=== PATIENT | male | born 1950 | race Two or more races ===

== ENCOUNTER 2022-04-04 11:08 | Inpatient (IN) | payer OTHER ==
[~2022-04-04] VITALS: Ht 165.1 cm; Wt 53.9 kg
[2022-04-04 14:12] LABS: Basophils # (auto) 0 10 ^3/uL (0-0.2); Basophils % (auto) 0.2 % (0.0-2.0); Eosinophils # (auto) 0 10 ^3/uL (0-0.8); Lymphocytes # (auto) 0.4 10 ^3/uL (0.4-5.4); Mean Corpuscular Volume 105.6 fL (80.0-100.0); Monocytes # (auto) 0.9 10 ^3/uL (0-1.3); Neutrophils % (auto) 92.8 % (37.0-80.0)
[2022-04-04 14:15] LABS: Hematocrit 31.9 % (41.0-53.0); Hemoglobin 10.9 g/dL (13.5-17.5); Lymphocytes % (auto) 2.2 % (10.0-50.0); Mean Corpuscular Hemoglobin 36.1 pg (28.0-32.0); Mean Corpuscular Hgb Conc. 34.2 g/dL (32.0-36.0); Monocytes % (auto) 4.8 % (0.0-12.0); Neutrophils # (auto) 17.8 10 ^3/uL (1.6-8.6); Red Blood Cells 3.02 10^6/uL (4.5-5.90); Red Cell Distribution Width 14.4 % (11.8-14.3); White Blood Cell 19.2 10^3/uL (4.4-10.8)
[2022-04-04 14:27] LABS: Albumin 3.5 g/dL (3.4-5.0); Calcium 8.3 mg/dL (8.5-10.1); Potassium 4.7 mmol/L (3.5-5.1)
[2022-04-04 14:31] LABS: BUN/Creatinine Ratio 7.4; Bilirubin, Total 0.9 mg/dL (0.2-1.0); Total Protein 7.6 g/dL (6.4-8.2)
[2022-04-04 14:33] LABS: INR 0.99 (0.9-1.15); Partial Thromboplastin Time 31.4 sec (23.6-33.0)
[2022-04-04] MEDS ORDERED: DOCUSATE SOD 100 MG CAP PO PRN (22:15)
[2022-04-04] MEDS ORDERED: HYDROcodone-ACET 5/325MG TAB PO PRN (22:15)
[2022-04-04] MEDS ORDERED: ACETAMINOPHEN 325 MG TAB PO PRN (22:15)
[2022-04-04] MEDS ORDERED: ONDANSETRON HCL 4 MG/2 ML VIAL IV PRN (22:15)
[2022-04-04] MEDS ORDERED: metroNIDAZOLE 500MG/100ML 100 ML IV ONE (23:00)
[2022-04-04] MEDS ORDERED: NITROGLYCERIN 0.4 MG SL TAB SL PRN (23:30)
[2022-04-04] MEDS ORDERED: MORPHINE SULFATE INJ 2 MG/ml SYRG IV PRN (23:30)
[2022-04-05 02:12] VITALS: BP 120/46
[2022-04-05 02:26] LABS: Urine Bacteria FEW /hpf (None Seen); Urine Blood 1+ /uL (Negative); Urine Specific Gravity 1.014 (1.001-1.035); Urine WBC 573 /hpf (0 - 3); Urine WBC Clumps PRESENT /hpf (None Seen)
[2022-04-05 05:00] VITALS: BP 117/45
[2022-04-05] MEDS: SODIUM CHLOR 0.9% PF (SALINE LOCK) 10ML VIAL/SYR IV SCH ×3 (05:57→21:38)
[2022-04-05 06:12] LABS: Basophils # (auto) 0.1 10 ^3/uL (0-0.2); Basophils % (auto) 0.3 % (0.0-2.0); Eosinophils # (auto) 0 10 ^3/uL (0-0.8); Hemoglobin 9.9 g/dL (13.5-17.5); Lymphocytes # (auto) 0.8 10 ^3/uL (0.4-5.4); Mean Corpuscular Hemoglobin 35.7 pg (28.0-32.0); Red Blood Cells 2.76 10^6/uL (4.5-5.90)
[2022-04-05 06:14] LABS: Eosinophils % (auto) 0.1 % (0.0-7.0); Hematocrit 29.2 % (41.0-53.0); Lymphocytes % (auto) 5.3 % (10.0-50.0); Mean Corpuscular Hgb Conc. 33.8 g/dL (32.0-36.0); Mean Corpuscular Volume 105.8 fL (80.0-100.0); Monocytes # (auto) 0.9 10 ^3/uL (0-1.3); Monocytes % (auto) 6.3 % (0.0-12.0); White Blood Cell 14.8 10^3/uL (4.4-10.8)
[2022-04-05] MEDS: metroNIDAZOLE 500MG/100ML 100 ML IV SCH ×3 (06:15→21:31)
[2022-04-05 06:33] LABS: Potassium 5.1 mmol/L (3.5-5.1)
[2022-04-05 06:44] LABS: BUN/Creatinine Ratio 8.4; Bilirubin, Total 0.7 mg/dL (0.2-1.0); Calcium 8.1 mg/dL (8.5-10.1); Total Protein 6.5 g/dL (6.4-8.2)
[2022-04-05 08:30] VITALS: BP 115/82
[2022-04-05] MEDS: B-COMPLEX W/ C & FOLIC ACID(NEPHROVITE TAB) PO SCH (09:46)
[2022-04-05] MEDS: SEVELAMER 800 MG TAB PO SCH ×3 (09:46→18:49)
[2022-04-05] MEDS ORDERED: HEPARIN SODIUM (PORCINE) 5000 UNITS/ML 1ML VIAL SC SCH (10:00)
[2022-04-05] MEDS ORDERED: FAMOTIDINE (10MG/ML) 2ML VL IV SCH (10:00)
[2022-04-05] MEDS ORDERED: cefTRIAXone 1GM/50ML D5W 50 ML IV ONE (11:00)
[2022-04-05] MEDS ORDERED: PANTOPRAZOLE 40 MG/10 ML VIAL INJ IV ONE (11:00)
[2022-04-05 12:25] VITALS: BP 112/39
[2022-04-05 16:20] VITALS: BP 132/53
[2022-04-05] MEDS: PANTOPRAZOLE 40 MG/10 ML VIAL INJ IV SCH (21:31)
[2022-04-06 05:00] VITALS: BP 122/48
[2022-04-06] MEDS: SODIUM CHLOR 0.9% PF (SALINE LOCK) 10ML VIAL/SYR IV SCH (05:16)
[2022-04-06] MEDS: metroNIDAZOLE 500MG/100ML 100 ML IV SCH (05:16)
[2022-04-06 06:06] LABS: Basophils # (auto) 0 10 ^3/uL (0-0.2); Basophils % (auto) 0.3 % (0.0-2.0); Eosinophils # (auto) 0 10 ^3/uL (0-0.8); Eosinophils % (auto) 0.2 % (0.0-7.0); Mean Corpuscular Volume 105.9 fL (80.0-100.0); Monocytes # (auto) 0.7 10 ^3/uL (0-1.3)
[2022-04-06 06:09] LABS: Hematocrit 27.6 % (41.0-53.0); Hemoglobin 9.6 g/dL (13.5-17.5); Lymphocytes # (auto) 0.7 10 ^3/uL (0.4-5.4); Lymphocytes % (auto) 8.9 % (10.0-50.0); Mean Corpuscular Hgb Conc. 34.9 g/dL (32.0-36.0); Neutrophils # (auto) 6.8 10 ^3/uL (1.6-8.6); Neutrophils % (auto) 82.6 % (37.0-80.0); Red Cell Distribution Width 13.9 % (11.8-14.3); White Blood Cell 8.2 10^3/uL (4.4-10.8)
[2022-04-06 06:22] LABS: BUN/Creatinine Ratio 10.1; Calcium 7.7 mg/dL (8.5-10.1); Potassium 4.5 mmol/L (3.5-5.1)
[2022-04-06] MEDS ORDERED: SODIUM CHL 0.9% 1000 ML BAG XX ONE (07:00)
[2022-04-06] MEDS ORDERED: cefTRIAXone 1GM/50ML D5W 50 ML IV SCH (09:00)
[2022-04-06 09:06] VITALS: BP 114/38
[2022-04-06] MEDS: SEVELAMER 800 MG TAB PO SCH ×2 (09:23→12:00)
[2022-04-06] MEDS: PANTOPRAZOLE 40 MG/10 ML VIAL INJ IV SCH (09:24)
[2022-04-06] MEDS: B-COMPLEX W/ C & FOLIC ACID(NEPHROVITE TAB) PO SCH (09:24)
[2022-04-06 12:24] VITALS: BP 134/56
[2022-04-06] MEDS ORDERED: CEPH-509 PO (12:33)
[2022-04-06] MEDS ORDERED: EPOETIN ALFA-EPBX 4,000 UNIT/ML VIAL SC ONE (21:00)
== END 2022-04-06 16:13 | disposition home or self-care (01) | DRG 682 ==
LOC: ER 11:08 → EDBD 11:08 → OVERFLOW 23:25 → WEST WING 04-05 01:09
PROVIDERS: ADMIT Nurse Practitioner Family; ATTEND Internal Medicine Geriatric Medicine
PROC: 5A1D70Z Performance of Urinary Filtration, Intermittent, Less than 6 Hours Per Day (ICD-10-PCS; principal; 2022-04-06)
DX: I12.0 Hypertensive chronic kidney disease with stage 5 chronic kidney disease or end stage renal disease (principal); N18.6 End stage renal disease; N39.0 Urinary tract infection, site not specified; E87.1 Hypo-osmolality and hyponatremia; K57.30 Diverticulosis of large intestine without perforation or abscess without bleeding; D63.8 Anemia in other chronic diseases classified elsewhere; D72.829 Elevated white blood cell count, unspecified; H54.7 Unspecified visual loss; M89.8X9 Other specified disorders of bone, unspecified site; Z20.822 Contact with and (suspected) exposure to COVID-19; Z79.01 Long term (current) use of anticoagulants; Z99.2 Dependence on renal dialysis
CPT/HCPCS: 36415; 71045; 74176; 76700; 80048; 80053; 81001; 83605; 84484; 85025; 85384; 85610; 85730; 86850; 86900; 86901; 87040; 87081; 90935; 93005; C9113; G0378; J0696; J1642; J3490

== ENCOUNTER 2023-02-06 10:57 | Emergency (ER) | payer OTHER ==
[~2023-02-06] VITALS: Ht 165.1 cm; Wt 54.5 kg
[~2023-02-06 10:57] MED LIST: CEPH-509 PO
[2023-02-06 13:52] LABS: Basophils # (auto) 0 10 ^3/uL (0-0.2); Eosinophils # (auto) 0 10 ^3/uL (0-0.8); Lymphocytes # (auto) 0.8 10 ^3/uL (0.4-5.4); Mean Corpuscular Hgb Conc. 34.2 g/dL (32.0-36.0); Monocytes # (auto) 0.7 10 ^3/uL (0-1.3); Monocytes % (auto) 9.2 % (0.0-12.0); Neutrophils % (auto) 79.8 % (37.0-80.0); Nucleated Red Blood Cells % 0.1 %; Red Blood Cells 3.68 10^6/uL (4.5-5.90); White Blood Cell 7.2 10^3/uL (4.4-10.8)
[2023-02-06 13:54] LABS: Basophils % (auto) 0.3 % (0.0-2.0); Eosinophils % (auto) 0.2 % (0.0-7.0); Hematocrit 38.4 % (41.0-53.0); Hemoglobin 13.1 g/dL (13.5-17.5); Lymphocytes % (auto) 10.5 % (10.0-50.0); Mean Corpuscular Hemoglobin 35.7 pg (28.0-32.0); Mean Corpuscular Volume 104.4 fL (80.0-100.0); Neutrophils # (auto) 5.7 10 ^3/uL (1.6-8.6); Red Cell Distribution Width 12.9 % (11.8-14.3)
[2023-02-06 14:05] LABS: Albumin 4.1 g/dL (3.4-5.0); Calcium 9.2 mg/dL (8.5-10.1); Magnesium 2.6 mg/dL (1.6-2.6); Potassium 4.9 mmol/L (3.5-5.1)
[2023-02-06 14:08] LABS: BUN/Creatinine Ratio 5.6 (10.0-20.0); Bilirubin, Total 0.7 mg/dL (0.2-1.0); Total Protein 7.3 g/dL (6.4-8.2)
[2023-02-06 17:31] VITALS: BP 123/76
== END 2023-02-06 17:33 | disposition home or self-care (01) ==
LOC: ER 10:57 → EDUNIT# 10:57 → EDBD 10:57 → ER 17:32
DX: I48.0 Paroxysmal atrial fibrillation (principal); I12.0 Hypertensive chronic kidney disease with stage 5 chronic kidney disease or end stage renal disease; N18.6 End stage renal disease; Z99.2 Dependence on renal dialysis
CPT/HCPCS: 36415; 71045; 80053; 83735; 83880; 84484; 85025; 93005

== ENCOUNTER 2024-10-13 16:06 | Inpatient (IN) | payer OTHER ==
[~2024-10-13] VITALS: Ht 165.1 cm; Wt 93.5 kg
--- NOTE | 2024-10-13 19:03 | ED.PDOC ---
History of Present Illness HPI Comments 73-year-old renal failure male on dialysis chief complaint general weakness dizziness. States symptoms started a proximally 1 week ago. States went walking he feels really weak dizzy he states he almost fell the other day due to cause of the weakness and dizziness. He does report some chest pain a day ago but since has resolved. has been following regularly with his dialysis and has not missed any sessions. Denies difficulty breathing, shortness of breath, headaches, numbness slurred speech, chest pain at this time, nausea, vomiting or diarrhea. Chief Complaint: General Weakness Time Seen by MD: 18:17 Primary Care Provider: Reviewed Notes: Nurses Notes, Medications, Allergies Allergies: Coded Allergies: NO KNOWN ALLERGIES (Unverified , 04/04/22) Home Meds Active Scripts Cephalexin (KEFLEX 500) 500 Mg Cap, 1 CAP PO Q8HR for 7 Days, #21 CAP Prov:ECHO URBINA MD 04/06/22 Information Source: Patient Mode of Arrival: EMS Past Medical History PAST MEDICAL HISTORY: AFIB, ESRD, HTN Surgical History: Denies all surgeries Family History Family History: Reviewed,noncontributory to illness Social History Smoker: Non-Smoker Alcohol: Denies ETOH Use Drugs: Denies Drug Use Lives In: Home Constitutional: reports: weakness; denies: chills, diaphoresis, fatigue, fever, malaise, sweats, others EENTM: denies: blurred vision, double vision, ear bleeding, ear discharge, ear drainage, ear pain, ear ringing, eye pain, eye redness, hearing loss, mouth pain, mouth swelling, nasal discharge, nose bleeding, nose congestion, nose pain, photophobia, tearing, throat pain, throat swelling, voice changes, others Respiratory: denies: cough, hemoptysis, orthopnea, SOB at rest, shortness of breath, SOB with excertion, stridor, wheezing, others Cardiovascular: reports: dizzy spells, lightheadedness; denies: chest pain, diaphoresis, Dyspnea on exertion, edema, irregular heart beat, left arm pain, palpitations, PND, syncope, others Gastrointestinal: denies: abdomen distended, abdominal pain, blood streaked bowels, constipated, diarrhea, dysphagia, difficulty swallowing, hematemesis, melena, nausea, poor appetite, poor fluid intake, rectal bleeding, rectal pain, vomiting, others Genitourinary: denies: burning, dysuria, flank pain, frequency, hematuria, incontinence, penile discharge, penile sore, pain, testicle pain, testicle swelling, urgency, others Neurological: denies: dizziness, fainting, headache, left sided numbness, left sided weakness, numbness, paresthesia, pre-existing deficit, right sided numbness, right sided weakness, seizure, speech problems, tingling, tremors, weakness, others Musculoskeletal: denies: back pain, gout, joint pain, joint swelling, muscle pain, muscle stiffness, neck pain, others Integumetry: denies: bruises, change in color, change in hair/nails, dryness, laceration, lesions, lumps, rash, wounds, others Allergic/Immunocompromised: denies: Difficulty Healing, Frequent Infections, Hives, Itching, others Hematologic/Lymphatic: denies: anemia, blood clots, easy bleeding, easy bruising, swollen glands, others Endocrine: denies: excessive hunger, excessive sweating, excessive thirst, excessive urination, flushing, intolerance to cold, intolerance to heat, unexplained weight gain, unexplained weight loss, others Psychiatric: denies: anxiety, bipolar disorder, depression, hopeless, panic disorder, schizophrenia, sleepless, suicidal, others Physical Exam General Appearance: No Apparent Distress, Normal HEENT: Normal ENT Inspection, Pharynx Normal, TMs Normal Neck: Full Range of Motion, Non-Tender, Normal, Normal Inspection Respiratory: Chest Non-Tender, Lungs Clear, No Accessory Muscle Use, No Respiratory Distress, Normal Breath Sounds Cardiovascular: No Edema, No JVD, No Murmur, No Gallop, Normal Peripheral Pulses, Regular Rate/Rhythm Breast Exam: Deferred Gastrointestinal: No Organomegaly, Non Tender, No Pulsatile Mass, Normal Bowel Sounds, Soft Genitalia: Deferred Pelvic: Deferred Rectal: Deferred Extremities: No calf tenderness, Normal capillary refill, Normal inspection, Normal range of motion, Non-tender, No pedal edema Musculoskeletal : Apperance: Normal 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 Was a procedure done?: No Differential Dx Considerations may include: Electrolyte balance. Bradycardia. VA X-Ray, Labs, Meds, VS Vital Signs Date Time Temp Pulse Resp B/P (MAP) Pulse Ox O2 Delivery O2 Flow Rate FiO2 10/13/24 19:57 98.7 54 17 144/60 (88) 99 98.7 10/13/24 19:57 54 17 99 Room Air 10/13/24 19:29 50 10/13/24 16:18 98.9 63 22 159/69 (99) 95 Lab Test 10/13/24 22:05 10/13/24 20:05 10/13/24 18:54 Range/Units Triglycerides Level 116 < 150 mg/dL Cholesterol Level 180 < 200 mg/dL LDL Cholesterol 113 H < 100 mg/dL HDL Cholesterol 50 40-59 mg/dL Troponin I High Sensitivity 7 8 </=54 ng/L White Blood Count 5.7 4.4-10.8 10^3/uL Red Blood Count 3.75 L 4.5-5.90 10^6/uL Hemoglobin 13.1 L 13.5-17.5 g/dL Hematocrit 38.1 L 41.0-53.0 % Mean Corpuscular Volume 101.6 H 80.0-100.0 fL Mean Corpuscular Hemoglobin 34.9 H 28.0-32.0 pg Mean Corpuscular Hemoglobin Concent 34.3 32.0-36.0 g/dL Red Cell Distribution Width 13.7 11.8-14.3 % Platelet Count 213 140-450 10^3/uL Mean Platelet Volume 8.6 6.9-10.8 fL Neutrophils (%) (Auto) 77.7 37.0-80.0 % Lymphocytes (%) (Auto) 10.2 10.0-50.0 % Monocytes (%) (Auto) 11.6 0.0-12.0 % Eosinophils (%) (Auto) 0.2 0.0-7.0 % Basophils (%) (Auto) 0.3 0.0-2.0 % Neutrophils # (Auto) 4.4 1.6-8.6 10 ^3/uL Lymphocytes # (Auto) 0.6 0.4-5.4 10 ^3/uL Monocytes # (Auto) 0.7 0-1.3 10 ^3/uL Eosinophils # (Auto) 0 0-0.8 10 ^3/uL Basophils # (Auto) 0 0-0.2 10 ^3/uL Nucleated Red Blood Cells 0.1 % Sodium Level 142 136-145 mmol/L Potassium Level 5.5 H 3.5-5.1 mmol/L Chloride Level 106 98-107 mmol/L Carbon Dioxide Level 29 20-31 mmol/L Anion Gap 7 5-15 Blood Urea Nitrogen 37 H 9-23 mg/dL Creatinine 6.66 H 0.700-1.30 mg/dL Glomerular Filtration Rate Calc 8 >90 mL/min BUN/Creatinine Ratio 5.6 L 10.0-20.0 Serum Glucose 128 H 74-106 mg/dL Hemoglobin A1c 4.8 <5.7 % A1C Calcium Level 9.6 8.7-10.4 mg/dL Magnesium Level 2.3 1.6-2.6 mg/dL Total Bilirubin 0.6 0.2-1.0 mg/dL Aspartate Amino Transferase (AST) 17 13-40 U/L Alanine Aminotransferase (ALT) 22 7-40 U/L Alkaline Phosphatase 89 46-116 U/L Total Protein 6.8 5.7-8.2 g/dL Albumin 4.0 3.2-4.8 g/dL Thyroid Stimulating Hormone (TSH) 16.62 H 0.55-4.78 uIU/mL X-Ray, Labs, Meds, VS Comment Chest x-ray without any cardiopulmonary acute findings. CMP shows GFR of 8 a potassium of 5.5. Twelve lead shows bradycardia 50 beats per minute. CBC within normal limits. Troponin 8 in 7. Patient continues with general weakness intermittent dizziness we will admit inpatient for further evaluation and workup. Patient placed for hospitalist Time of 1ST Reevaluation: 21:44 Reevaluation 1ST: Unchanged Patient Education/Counseling: Diagnosis, Treatment, Prognosis, Need For Follow Up Family Education/Counseling: Diagnosis, Treatment, Prognosis, Need For Follow Up Departure 1 Departure Time of Disposition: 21:43 Impression: Primary Impression: Dizziness Additional Impressions: Weakness CKD (chronic kidney disease) requiring chronic dialysis Disposition: 09 ADMITTED INPATIENT Condition: Stable Discharged With: Other (With daughter) Critical Care Note Critical Care Time?: No Stability Stability form required: DEMETRI Barone Oct 13, 2024 19:03
[2024-10-13 19:24] LABS: Basophils # (auto) 0 10 ^3/uL (0-0.2); Eosinophils # (auto) 0 10 ^3/uL (0-0.8); Eosinophils % (auto) 0.2 % (0.0-7.0); Hemoglobin 13.1 g/dL (13.5-17.5); Neutrophils # (auto) 4.4 10 ^3/uL (1.6-8.6); Nucleated Red Blood Cells % 0.1 %; Red Cell Distribution Width 13.7 % (11.8-14.3)
[2024-10-13 19:27] LABS: Basophils % (auto) 0.3 % (0.0-2.0); Hematocrit 38.1 % (41.0-53.0); Lymphocytes # (auto) 0.6 10 ^3/uL (0.4-5.4); Lymphocytes % (auto) 10.2 % (10.0-50.0); Mean Corpuscular Hemoglobin 34.9 pg (28.0-32.0); Mean Corpuscular Hgb Conc. 34.3 g/dL (32.0-36.0); Mean Corpuscular Volume 101.6 fL (80.0-100.0); Monocytes # (auto) 0.7 10 ^3/uL (0-1.3); Monocytes % (auto) 11.6 % (0.0-12.0); Neutrophils % (auto) 77.7 % (37.0-80.0); Platelet Count (auto) 213 10^3/uL (140-450); Red Blood Cells 3.75 10^6/uL (4.5-5.90); White Blood Cell 5.7 10^3/uL (4.4-10.8)
[2024-10-13 19:36] LABS: Alanine Aminotransferase 22 U/L (7-40); Alkaline Phosphatase 89 U/L (46-116); Anion Gap 7 (5-15); Aspartate Aminotransferase 17 U/L (13-40); BUN/Creatinine Ratio 5.6 (10.0-20.0); Bilirubin, Total 0.6 mg/dL (0.2-1.0); Calcium 9.6 mg/dL (8.7-10.4); Carbon Dioxide 29 mmol/L (20-31); Chloride 106 mmol/L (98-107); Magnesium 2.3 mg/dL (1.6-2.6); Sodium 142 mmol/L (136-145); Total Protein 6.8 g/dL (5.7-8.2)
[2024-10-13 19:38] LABS: Blood Urea Nitrogen 37 mg/dL (9-23); Glucose 128 mg/dL (74-106); Potassium 5.5 mmol/L (3.5-5.1)
--- NOTE | 2024-10-13 20:28 | DVH ---
CHEST RADIOGRAPH Indication: weakness, sob Technique: Frontal and lateral view of the chest was obtained Comparison: None FINDINGS: Lines and Tubes: None Lungs: Clear Pleura: No effusion. No pneumothorax. Cardiomediastinal contours: Unremarkable Bones: Unremarkable IMPRESSION: No evidence of acute disease.
[2024-10-13] MEDS ORDERED: ACETAMINOPHEN 325 MG TAB PO PRN (22:30)
--- NOTE | 2024-10-13 22:52 | DVHHPRES ---
History of Present Illness Resident Creating Document: SUDHAKAR HINTON RESIDENT History of Present Illness This 73-year-old male with past medical history of hypertension, partial bilateral blindness, end-stage renal disease on hemodialysis (Wednesday, and Wednesday), last hemodialysis was yesterday. The patient presented to the ED to generalized weakness fatigue. The patient states that symptoms started three days ago characterized by generalized weakness, fatigue recurrent falls without loss of consciousness. The patient denies fever, chills, chest pain, palpita tions, abdominal pain or any other associated symptoms. Initial EKG showed sinus rhythm with sinus bradycardia with a rate of 50, no ST segment elevation or depression. Initial labs were grossly unremarkable except for hyperkalemia at 5.5, creatinine 6.66 and BUN 37. Initial chest x-ray was grossly unremarkable without evidence of focal consolidation for vascular congestion. We will admit the patient for further assessment and management. Cardiovascular: HTN Renal/: Chronic renal insuff, Chronic renal failure, Other (End-stage renal disease on hemodialysis (Wednesday, and Wednesday)) Past Surgical History: None Family History: None Smoke: No ALCOHOL: none Drugs: None Lives: with Family Domestic Violence: Neg Review of Systems Constitutional: Yes: Weakness, Other (Generalized weakness, fatigue.); No: Fever, Chills, Sweats, Malaise Eyes: Other (Has bilateral partial blindness); No: Pain, Vision change, Conjunctivae inflammation, Eyelid inflammation, Redness ENT: No: Ear pain, Ear discharge, Nose pain, Nose discharge, Nose congestion, Mouth pain, Mouth swelling, Throat pain, Throat swelling, Other Respiratory: No: Cough, Dry, Shortness of breath, SOB with excertion, Wheezing, Hemoptysis, Pleuritic Pain, Sputum, Wheezing, Other Cardiovascular: No: Chest Pain, Palpitations, Orthopnea, Paroxysmal Noc. Dyspnea, Edema, Lt Headedness, Other Gastrointestinal: No: Nausea, Vomiting, Abdominal Pain, Diarrhea, Constipation, Melena, Hematochezia, Other Genitourinary: No Dysuria, No Frequency, No Incontinence, No Hematuria, No Retention, No Other Musculoskeletal: No: other, neck pain, shoulder pain, arm pain, back pain, hand pain, leg pain, foot pain Skin: No: Rash, Lesions, Jaundice, Bruising, Other Neurological: Weakness; No: Numbness, Incoordination, Change in speech, Confusion, Seizures, Other Allergies: Coded Allergies: NO KNOWN ALLERGIES (Unverified , 04/04/22) Medications Current Medications Medications Dose Ordered Sig/Abe Route Start Time Stop Time Status Last Admin Dose Admin Acetaminophen 650 mg Q6HP PRN PO 10/13/24 22:30 UNV Enoxaparin Sodium 40 mg DAILY SC 10/14/24 10:00 UNV Exam Vital Signs Vital Signs Date Time Temp Pulse Resp B/P (MAP) Pulse Ox O2 Delivery O2 Flow Rate FiO2 10/13/24 19:57 98.7 54 17 144/60 (88) 99 98.7 10/13/24 19:57 Room Air General Appearance: Alert, Oriented X3, Cooperative, No acute distress HEENT: Atraumatic, PERRLA, EOMI, Mucous membr. moist/pink Respiratory: Clear to auscultation, Normal air movement Cardiovascular: Regular rate, Normal S1, Normal S2, No murmurs Abdominal: Normal bowel sounds, Soft, No tenderness, No hepatospenomegaly Extremities: No clubbing, No cyanosis, No edema, Normal pulses, No tenderness/swelling Skin: No rashes, No breakdown, No significant lesion Neuro: Normal gait, Normal speech, Strength at 5/5 X4 ext, Normal tone, Sensation intact, Cranial nerves 3-12 NL, Reflexes 2+ Psych/Mental Status: Mental status NL, Mood NL Labs/Xrays Labs Test 10/13/24 20:05 10/13/24 18:54 Range/Units Troponin I High Sensitivity 7 </=54 ng/L White Blood Count 5.7 4.4-10.8 10^3/uL Red Blood Count 3.75 L 4.5-5.90 10^6/uL Hemoglobin 13.1 L 13.5-17.5 g/dL Hematocrit 38.1 L 41.0-53.0 % Mean Corpuscular Volume 101.6 H 80.0-100.0 fL Mean Corpuscular Hemoglobin 34.9 H 28.0-32.0 pg Mean Corpuscular Hemoglobin Concent 34.3 32.0-36.0 g/dL Red Cell Distribution Width 13.7 11.8-14.3 % Platelet Count 213 140-450 10^3/uL Mean Platelet Volume 8.6 6.9-10.8 fL Neutrophils (%) (Auto) 77.7 37.0-80.0 % Lymphocytes (%) (Auto) 10.2 10.0-50.0 % Monocytes (%) (Auto) 11.6 0.0-12.0 % Eosinophils (%) (Auto) 0.2 0.0-7.0 % Basophils (%) (Auto) 0.3 0.0-2.0 % Neutrophils # (Auto) 4.4 1.6-8.6 10 ^3/uL Lymphocytes # (Auto) 0.6 0.4-5.4 10 ^3/uL Monocytes # (Auto) 0.7 0-1.3 10 ^3/uL Eosinophils # (Auto) 0 0-0.8 10 ^3/uL Basophils # (Auto) 0 0-0.2 10 ^3/uL Nucleated Red Blood Cells 0.1 % Sodium Level 142 136-145 mmol/L Potassium Level 5.5 H 3.5-5.1 mmol/L Chloride Level 106 98-107 mmol/L Carbon Dioxide Level 29 20-31 mmol/L Anion Gap 7 5-15 Blood Urea Nitrogen 37 H 9-23 mg/dL Creatinine 6.66 H 0.700-1.30 mg/dL Glomerular Filtration Rate Calc 8 >90 mL/min BUN/Creatinine Ratio 5.6 L 10.0-20.0 Serum Glucose 128 H 74-106 mg/dL Calcium Level 9.6 8.7-10.4 mg/dL Magnesium Level 2.3 1.6-2.6 mg/dL Total Bilirubin 0.6 0.2-1.0 mg/dL Aspartate Amino Transferase (AST) 17 13-40 U/L Alanine Aminotransferase (ALT) 22 7-40 U/L Alkaline Phosphatase 89 46-116 U/L Total Protein 6.8 5.7-8.2 g/dL Albumin 4.0 3.2-4.8 g/dL Assessment/Plan Assessment/Plan Assessment/plan Generalized weakness and fatigue rule out cardiac etiology Symptomatic bradycardia? -initial EKG showed sinus rhythm with bradycardia at a rate of [address] segment elevation or depression -troponins were negative -Initial chest xray was grossly unremarkable no evidence of focal consolidations or pulmonary vascular congestion -denies chest pain, palpitation -Ordered echocardiogram -consult cardiology to R/O symptomatic bradycardia or any cardiac etiology -Ordered TSH to r/o hypothyroidism or any metabolic etiology -Patient denies usage of any medications at home including beta blockers/calcium channel blockers. ESRD on HD (wednesday,,wednesday) -last creatinine was 6.66, BUN 37 -consulted nephrology for hemodialysis Hyperkalemia due to end-stage renal disease -potassium is 5.5 -hyperkalemia protocol given. Goals of care discussed with the patient at bedside, full code Plan discussed with Dr. Majano Plan discussed with: Patient My Orders Orders - SUDHAKAR HINTON Procedure Category Date Status Time Admit ADMIT 10/13/24 Transmitted 22:25 Code Status CODE 10/13/24 Transmitted 22:25 Vital Signs XIOMARA 10/13/24 In Process 22:25 Review Orders With XIOMARA 10/13/24 In Process Adm. 22:25 Regular Diet DIET 10/14/24 Transmitted Breakfast Acetaminophen Tablet PHA 10/13/24 Logged (Tylenol Tablet) 22:30 Notify Of Changes XIOMARA 10/13/24 In Process From Base 22:25 Advance Directive XIOMARA 10/13/24 In Process 22:25 Urinalysis LAB 10/13/24 Logged 22:25 Lipid Panel LAB 10/13/24 Logged 22:25 Patient Condition ORDERS 10/13/24 Transmitted 22:25 Allergies XIOMARA 10/13/24 In Process 22:25 Drug Screen LAB 10/13/24 Logged 22:25 Ambulate Every 4hours XIOMARA 10/13/24 In Process 22:25 Hemoglobin A1c LAB 10/13/24 Logged 22:25 Enoxaparin Sodium PHA 10/14/24 Logged (Lovenox) 10:00 Echo 2d Mode Cardiac US 10/13/24 Transmitted DOP 22:31 * Cardiology Consult CONS 10/13/24 Transmitted 22:31 *Dr. [facility] CONS 10/13/24 Transmitted -[place] 22:31 Date of Service: Oct 13, 2024 Billing Provider: DEYA MAJANO MD Common Visit Codes: 08715-[id number] INP/OBS CARE (HIGH) Secondary Visit Codes: 06050-[id number] CARE PLAN 30 MINUTES SUDHAKAR HINTON Oct 13, 2024 22:52 DEYA MAJANO MD Oct 16, 2024 20:01
[2024-10-13 22:58] LABS: Triglycerides 116 mg/dL (< 150)
[2024-10-13 23:00] LABS: Cholesterol 180 mg/dL (< 200); HDL Cholesterol 50 mg/dL (40-59)
[2024-10-13 23:01] LABS: LDL Cholesterol 113 mg/dL (< 100)
[2024-10-13] MEDS: ALBUTEROL SULF 2.5 MG/0.5ML(0.5%) NEB SOLN NEB ONE (23:29)
[2024-10-14] VITALS (10 sets, daily range): BP systolic 0–140; BP diastolic 34–86; PULSE 17–106; RESP 16–18; TEMP 97.7–98.5; O2SAT 95–100
[2024-10-14] MEDS: FUROSEMIDE 20 MG/2 ML VIAL IV ONE (00:45)
[2024-10-14] MEDS: DEXTROSE (50%) 50ML SYRG IV ONE (00:46)
[2024-10-14] MEDS: InsuLIN REG 1unit/0.01ml Soln (100units/ml) IV ONE (00:56)
[2024-10-14] MEDS ORDERED: ENOXAPARIN SOD 40 MG/0.4 ML SYRINGE SC SCH (10:00)
[2024-10-14] MEDS ORDERED: SODIUM CHL 0.9% 1000 ML BAG XX ONE (12:15)
--- NOTE | 2024-10-14 12:35 | DVHINCON2 ---
Date Seen: Oct 14, 2024 Referring Physician MD [place] resident Reason for Consultation Symptomatic bradycardia History of Present Illness This is a 73 year old male patient who presents to the emergency room with chief complaint of generalized weakness, dizziness, and recurrent falls for four days prior to emergency room arrival. Cardiology has now been consulted for symptomatic bradycardia. Initial twelve lead electrocardiogram reveals sinus bradycardia with PAC without pauses or AV block. At the time of assessment, the patient was back in a normal sinus rhythm. Continuous weight trainer shows no events of bradycardia. The patient denies taking any AV juan blocking medications at home. The patient denies any cardiac symptoms such as chest pain, palpitations, or shortness of breath. Significant past medical history includes hypertension, ESRD on HD, partial blindness. The patient denies any previous cardiac history. Past Medical History Past medical history reviewed. No other significant than mentioned above. Past Surgical History Denies all previous surgeries Family History Family history reviewed. Social History Denies the use of tobacco, alcohol or illicit drugs. Allergies: Coded Allergies: NO KNOWN ALLERGIES (Unverified , 04/04/22) Home Meds Active Scripts Cephalexin (KEFLEX 500) 500 Mg Cap, 1 CAP PO Q8HR for 7 Days, #21 CAP Prov:ECHO URBINA MD 04/06/22 Current Medications Current Medications Medications (Trade) Dose Ordered Sig/Abe Route PRN Reason Start Time Stop Time Status Last Admin Acetaminophen (Tylenol Tablet) 650 mg Q6HP PRN PO PAIN SCALE 1-3 OR TEMP>100.4 10/13/24 22:30 Enoxaparin Sodium (Lovenox) 40 mg DAILY SC 10/14/24 10:00 UNV Review of Systems Constitutional: Generalized weakness Ears, Nose, & Throat: No symptom reported Eyes: No symptom reported Neurological: Dizziness Pulmonary/Respiratory: No symptoms reported Cardiovascular: No symptom reported Gastrointestinal: No symptom reported Genitourinary: No symptom reported Musculoskeletal: No symptom reported Skin: No symptom reported Psychiatric: No symptom reported Endocrine: No symptom reported Hematologic/Lymphatic: No symptom reported Vital Signs Vital Signs Date Time Temp Pulse Resp B/P (MAP) Pulse Ox O2 Delivery O2 Flow Rate FiO2 10/14/24 09:00 98.1 69 18 113/44 (67) 98 98.1 10/14/24 08:00 Room Air* 0 21 Physical Exam General Appearance: Cooperative. Pulmonary/Respiratory: Clear, bilateral breaths sounds. Cardiovascular/Chest: Regular rate and rhythm. Peripheral Pulses: 2+ Radial (R). 2+ Radial (L). 2+ Pedal (R). 2+ Pedal (L) Abdominal Exam: Normal bowel sounds. Ankle Exam: Negative ankle edema Lower extremities: Negative lower extremity edema Neuro/Mental Status: A/OX4, coherent. Thoughts/Psych: Normal thought pattern. Appropriate mood and affect. Good judgment and insight. Appearance: No acute distress. Skin Exam: Normal inspection. Normal color. Warm and dry. Labs/Diagnostic Data Labs Test 10/14/24 07:48 10/13/24 22:05 10/13/24 20:05 10/13/24 18:54 Range/Units Free Thyroxine (T4) Calculated 1.12 0.89-1.76 ng/dL Triglycerides Level 116 < 150 mg/dL Cholesterol Level 180 < 200 mg/dL LDL Cholesterol 113 H < 100 mg/dL HDL Cholesterol 50 40-59 mg/dL Troponin I High Sensitivity 7 </=54 ng/L White Blood Count 5.7 4.4-10.8 10^3/uL Red Blood Count 3.75 L 4.5-5.90 10^6/uL Hemoglobin 13.1 L 13.5-17.5 g/dL Hematocrit 38.1 L 41.0-53.0 % Mean Corpuscular Volume 101.6 H 80.0-100.0 fL Mean Corpuscular Hemoglobin 34.9 H 28.0-32.0 pg Mean Corpuscular Hemoglobin Concent 34.3 32.0-36.0 g/dL Red Cell Distribution Width 13.7 11.8-14.3 % Platelet Count 213 140-450 10^3/uL Mean Platelet Volume 8.6 6.9-10.8 fL Neutrophils (%) (Auto) 77.7 37.0-80.0 % Lymphocytes (%) (Auto) 10.2 10.0-50.0 % Monocytes (%) (Auto) 11.6 0.0-12.0 % Eosinophils (%) (Auto) 0.2 0.0-7.0 % Basophils (%) (Auto) 0.3 0.0-2.0 % Neutrophils # (Auto) 4.4 1.6-8.6 10 ^3/uL Lymphocytes # (Auto) 0.6 0.4-5.4 10 ^3/uL Monocytes # (Auto) 0.7 0-1.3 10 ^3/uL Eosinophils # (Auto) 0 0-0.8 10 ^3/uL Basophils # (Auto) 0 0-0.2 10 ^3/uL Nucleated Red Blood Cells 0.1 % Sodium Level 142 136-145 mmol/L Potassium Level 5.5 H 3.5-5.1 mmol/L Chloride Level 106 98-107 mmol/L Carbon Dioxide Level 29 20-31 mmol/L Anion Gap 7 5-15 Blood Urea Nitrogen 37 H 9-23 mg/dL Creatinine 6.66 H 0.700-1.30 mg/dL Glomerular Filtration Rate Calc 8 >90 mL/min BUN/Creatinine Ratio 5.6 L 10.0-20.0 Serum Glucose 128 H 74-106 mg/dL Hemoglobin A1c 4.8 <5.7 % A1C Calcium Level 9.6 8.7-10.4 mg/dL Magnesium Level 2.3 1.6-2.6 mg/dL Total Bilirubin 0.6 0.2-1.0 mg/dL Aspartate Amino Transferase (AST) 17 13-40 U/L Alanine Aminotransferase (ALT) 22 7-40 U/L Alkaline Phosphatase 89 46-116 U/L Total Protein 6.8 5.7-8.2 g/dL Albumin 4.0 3.2-4.8 g/dL Thyroid Stimulating Hormone (TSH) 16.62 H 0.55-4.78 uIU/mL Assessment Sinus bradycardia Rule out structural heart disease Hyperlipidemia ESRD on hemodialysis Hyperkalemia Legally blind Plan/Recommendation We will continue with the following plan/recommendations (Dr. Putnam): Patient seen and examined at bedside with . We will obtain a transthoracic echocardiogram to evaluate cardiac function. We will recommend to avoid any AV juan blocking agents. Monitor orthostatic vitals. Cardiac surveillance: Monitor for any ECG changes including pauses or AV blocks and notify cardiology team immediately. Thank you for allowing us to care for this patient. Please call with any questions or concerns. Critical care time spent: 41 minutes This medical document was created using an electronic medical record system with voice recognition software and computerized dictation system. Although this document has been carefully reviewed, there might still be some phonetic and typographical errors. Occasional wrong-word or ``sound-alike substitutions may have occurred due to the inherent limitations of voice recognition software. These areas are purely typographical due to imperfections of the software programs and do not reflect any compromise in the patient's medical care. Please read the chart carefully and recognize, using context, where these substitutions have occurred. Plan discussed with: Patient Date of Service: Oct 14, 2024 Billing Provider: KHOA PARDO Cardiology Common Codes: 12739-[id number] INP/OBS CARE (High) Cardiology Consultation Codes: 20491-[id number] CONSULT <45MIN KHOA PARDO Oct 14, 2024 12:35
--- NOTE | 2024-10-14 17:08 | DVHINCON2 ---
Date of service: Oct 14, 2024 Referring Physician Ap Ferrari Reason for Consultation Dialysis History of Present Illness 73 Y/O M with history of ESRD on HD via left arm AVF, HTN presented with chief complaint of generalized weakness and recurrent falls without loss of consciousness. EKG showed sinus bradycardia. last dialysis at [facility] on 10/12/23, net UF 1.2 L. Labs show K: 5.5 g/dl, Hb: 13.1 g/dl. CXR no acute abnormality. Nephrology consulted for dialysis. Past Medical History ESRD, HTN, hyperphosphatemia Past Surgical History AVF creation Allergies: Coded Allergies: NO KNOWN ALLERGIES (Unverified , 04/04/22) Home Meds Active Scripts Cephalexin (KEFLEX 500) 500 Mg Cap, 1 CAP PO Q8HR for 7 Days, #21 CAP Prov:ECHO URBINA MD 04/06/22 Current Medications Current Medications Medications (Trade) Dose Ordered Sig/Abe Route PRN Reason Start Time Stop Time Status Last Admin Acetaminophen (Tylenol Tablet) 650 mg Q6HP PRN PO PAIN SCALE 1-3 OR TEMP>100.4 10/13/24 22:30 Enoxaparin Sodium (Lovenox) 40 mg DAILY SC 10/14/24 10:00 Cancel Heparin Sodium (Porcine) 5,000 units Q12HR SC 10/15/24 10:00 Review of Systems As per HPI, all other systems were reviewed and are negative. H&P Exam Vital Signs/I&O Vital Sign Date Time Temp Pulse Resp B/P (MAP) Pulse Ox O2 Delivery O2 Flow Rate FiO2 10/14/24 16:57 97.8 84 18 116/65 (82) 95 97.8 10/14/24 08:00 Room Air* 0 21 Intake and Output 10/13/24 10/14/24 19:00 07:00 Intake Total 0 ml Balance 0 ml Intake Oral 0 ml Physical Exam Gen: NAD HEENT: NC,AT Lungs: CTA b/l Cardiac: RRR, no murmur Abd: soft, no tenderness Ext: no edema + left arm AVF Labs/Diagnostic Data Labs/Diagnostic Data Laboratory Tests Test 10/14/24 07:48 10/13/24 22:05 10/13/24 20:05 10/13/24 18:54 Range/Units Free Thyroxine (T4) Calculated 1.12 0.89-1.76 ng/dL Triglycerides Level 116 < 150 mg/dL Cholesterol Level 180 < 200 mg/dL LDL Cholesterol 113 H < 100 mg/dL HDL Cholesterol 50 40-59 mg/dL Troponin I High Sensitivity 7 8 </=54 ng/L White Blood Count 5.7 4.4-10.8 10^3/uL Red Blood Count 3.75 L 4.5-5.90 10^6/uL Hemoglobin 13.1 L 13.5-17.5 g/dL Hematocrit 38.1 L 41.0-53.0 % Mean Corpuscular Volume 101.6 H 80.0-100.0 fL Mean Corpuscular Hemoglobin 34.9 H 28.0-32.0 pg Mean Corpuscular Hemoglobin Concent 34.3 32.0-36.0 g/dL Red Cell Distribution Width 13.7 11.8-14.3 % Platelet Count 213 140-450 10^3/uL Mean Platelet Volume 8.6 6.9-10.8 fL Neutrophils (%) (Auto) 77.7 37.0-80.0 % Lymphocytes (%) (Auto) 10.2 10.0-50.0 % Monocytes (%) (Auto) 11.6 0.0-12.0 % Eosinophils (%) (Auto) 0.2 0.0-7.0 % Basophils (%) (Auto) 0.3 0.0-2.0 % Neutrophils # (Auto) 4.4 1.6-8.6 10 ^3/uL Lymphocytes # (Auto) 0.6 0.4-5.4 10 ^3/uL Monocytes # (Auto) 0.7 0-1.3 10 ^3/uL Eosinophils # (Auto) 0 0-0.8 10 ^3/uL Basophils # (Auto) 0 0-0.2 10 ^3/uL Nucleated Red Blood Cells 0.1 % Sodium Level 142 136-145 mmol/L Potassium Level 5.5 H 3.5-5.1 mmol/L Chloride Level 106 98-107 mmol/L Carbon Dioxide Level 29 20-31 mmol/L Anion Gap 7 5-15 Blood Urea Nitrogen 37 H 9-23 mg/dL Creatinine 6.66 H 0.700-1.30 mg/dL Glomerular Filtration Rate Calc 8 >90 mL/min BUN/Creatinine Ratio 5.6 L 10.0-20.0 Serum Glucose 128 H 74-106 mg/dL Hemoglobin A1c 4.8 <5.7 % A1C Calcium Level 9.6 8.7-10.4 mg/dL Magnesium Level 2.3 1.6-2.6 mg/dL Total Bilirubin 0.6 0.2-1.0 mg/dL Aspartate Amino Transferase (AST) 17 13-40 U/L Alanine Aminotransferase (ALT) 22 7-40 U/L Alkaline Phosphatase 89 46-116 U/L Total Protein 6.8 5.7-8.2 g/dL Albumin 4.0 3.2-4.8 g/dL Thyroid Stimulating Hormone (TSH) 16.62 H 0.55-4.78 uIU/mL Assessment Assessment: ESRD on HD Hyperkalemia Sinus bradycardia Recurrent falls Metabolic acidosis Hyperphosphatemia Anemia of CKD Secondary hyperparathyroidism Plan: s/p HD today. tolerated well Next HD on Wednesday TTS schedule for dialysis no need for CORTEZ at this time obtain 2D Echo Cardiology consult Plan discussed with: Patient, Daughter BRYCE TOMLIN MD Oct 14, 2024 17:08
--- NOTE | 2024-10-14 19:46 | DVHSR ---
APPROVED REPORT EXAM: Two-dimensional and M-mode echocardiogram with Doppler and color Doppler. Blood Pressure: 105/34 mmHg INDICATION R/O structural heart abn RISK FACTORS Height: 5'5", Weight: 112 DIMENSIONS LVDd4.8 (3.8-5.7cm)LA (2D)4.0 (1.9-4.0cm)Aortic Root3.2 (2.0-3.7cm) LVDs3.0 (2.5-4.0cm)LA (MM) (1.9-4.0cm)Aortic Cusp Exc1.9 (1.5-2.0cm) EF (%) 70.0 (55-70%)Rt. Atrium4.2 (1.9-4.0cm)Asc. Aorta cm IVSd1.1 (0.7-1.1cm)RV (D)3.5 (1.8-2.4cm) PWd1.1 (0.7-1.1cm) Mitral Valve MitralMitral Stenosis E wave0.89m/sMV Mean GR.mmHg A wave0.85m/sMV Peak GR.mmHg E/A ratio1.02D MVAcm2 DECEL [id number] 1/2 Timems Aortic Valve Aortic ValveAortic Stenosis V11.13m/Juan Daniel Mean GR.6mmHg V21.77m/Juan Daniel Peak GR.13mmHg LVOT Diameter2.0 (1.8-2.4cm)Doppler AVA2.00cm2 Pulmonic Valve V21.32m/s Tricuspid Valve TR Velocity2.68m/s [id number] LEFT VENTRICLE The left ventricle is normal size. There is normal left ventricular wall thickness. The left ventricle is normal in structure and function, LVEF is 65%. Diastolic function is normal. Normal wall motion. RIGHT VENTRICLE The right ventricle is normal size. The right ventricular systolic function is normal. ATRIA The left atrium is mildly dilated. The right atrium size is normal. MITRAL VALVE The mitral valve is normal. There is no mitral valve regurgitation noted. PULMONIC VALVE The pulmonic valve is grossly normal in structure and function. There is no pulmonic valvular regurgitation. TRICUSPID VALVE The tricuspid valve is grossly normal. There is trace to mild tricuspid regurgitation. AORTIC VALVE The aortic valve is trileaflet. No aortic regurgitation is present. GREAT VESSELS The aortic root is normal size. PERICARDIAL EFFUSION The pericardium appears normal. Other Information Technically limited study due to body habitus. Conclusion The left ventricle is normal size. There is normal left ventricular wall thickness. The left ventricl e is normal in structure and function, LVEF is 65%. Diastolic function is normal. Normal wall motion. The right ventricular systolic function is normal. The left atrium is mildly dilated. No significant valvular abnormalities. The pericardium appears normal.
--- NOTE | 2024-10-14 20:54 | DVHPNRES ---
Progress Note Date Seen: Oct 14, 2024 Resident Creating Document: LIZ VELAZQUEZ RESIDENT Medical Necessity Reason Pt with a Central, PICC or Fol: No Subjective Review of Systems pt seen and examined at bedside, mentions of no complaints Objective vital signs Vital Sign Date Time Temp Pulse Resp B/P (MAP) Pulse Ox O2 Delivery O2 Flow Rate FiO2 10/14/24 17:56 92 134/73 (93) 106 139/83 (101) 106 131/86 (101) 10/14/24 16:57 97.8 18 95 97.8 10/14/24 08:00 Room Air* 0 21 Total Intake and Output 10/13/24 10/13/24 10/14/24 15:00 23:00 07:00 Intake Total 0 ml Balance 0 ml medications Current Medications Medications Dose Ordered Sig/Abe Route Start Time Stop Time Status Last Admin Dose Admin Acetaminophen 650 mg Q6HP PRN PO 10/13/24 22:30 Enoxaparin Sodium 40 mg DAILY SC 10/14/24 10:00 Cancel Heparin Sodium (Porcine) 5,000 units Q12HR SC 10/15/24 10:00 Examination Examination General Appearance: Alert, Oriented X3, Cooperative, No acute distress HEENT: EOMI Respiratory: Clear to auscultation, Normal air movement Cardiovascular: Regular rate, Normal S1, Normal S2 Abdominal: Normal bowel sounds Extremities: No cyanosis, No edema, Normal pulses, No tenderness/swelling Skin: No rashes, No breakdown Neuro: Normal speech and tone laboratory and microbiology Laboratory Tests 10/13/24 18:54 Test 10/13/24 18:54 Range/Units Serum Glucose 128 H 74-106 mg/dL Labs and/or images reviewed: Labs reviewed by me, Image(s) reviewed by me Problem List/Assessment/Plan Problem List/Assessment/Plan Assessment/plan Generalized weakness and fatigue rule out cardiac etiology Symptomatic bradycardia? -initial EKG showed sinus rhythm with bradycardia at a rate of [address] segment elevation or depression -troponin were negative -Initial chest x-ray was grossly unremarkable no evidence of focal consolidations or pulmonary vascular congestion -denies chest pain, palpitation -Ordered echocardiogram -consult cardiology to R/O symptomatic bradycardia or any cardiac etiology -Ordered TSH to r/o hypothyroidism or any metabolic etiology -Patient denies usage of any medications at home including beta blockers/calcium channel blockers. ESRD on HD (Wednesday,,Wednesday) -consulted nephrology for hemodialysis Hyperkalemia due to ESRD -hyperkalemia protocol given. DVT prophylaxis Heparin 5000 q.12h Possible hypothyroidism Free T3 ordered in the a.m. Levothyroxine 25 mcg q.a.m. Goals of care discussed with the patient at bedside for 20 minutes, full code Case discussed with Dr. Andre VOGEL planning in the next 24-48 hours Plan discussed with: Patient, Other My Orders My Orders Orders - LIZ VELAZQUEZ RESIDENT Procedure Category Date Status Time Up In Chair Qid [id number] 10/14/24 In Process 17:03 Free T3 LAB 10/15/24 Verified 04:00 Complete Blood Count LAB 10/15/24 Verified 04:00 Basic Metabolic Panel LAB 10/15/24 Verified 04:00 Magnesium LAB 10/15/24 Verified 04:00 Addendum Addendum Addendum I was physically present for the tsang portions of the service provided to patient by THE RESIDENT. I have reviewed the documentation, discussed the case with resident and agree with the resident's documentation except as noted. Also the patient's clinical case was discussed with the patient's nurse. This medical document was created using an electronic medical record system with computerized dictation system. Although this document has been carefully reviewed, there might still be some phonetic and typographical errors. These areas are purely typographical due to imperfections of the software programs, and do not reflect any compromise in the patient's medical care. Late signature. Date of Service: Oct 14, 2024 Billing Provider: SOLOMON TELLEZ MD Common Visit Codes: 32105-[id number] INP/OBS CARE(HIGH) Secondary Visit Codes: 21454-[id number] CARE PLAN 30 MINUTES (20 minutes) LIZ VELAZQUEZ RESIDENT Oct 14, 2024 20:54 SOLOMON TELLEZ MD Oct 15, 2024 19:06
[2024-10-15 01:00] VITALS: BP_SYST 0; BP_SYST 124; BP_DIAS 42; PULSE 18; PULSE 60; RESP 18; TEMP 97.5; O2SAT 99
[2024-10-15 05:00] VITALS: BP_SYST 0; BP_SYST 142; BP_DIAS 74; PULSE 17; PULSE 54; RESP 17; TEMP 98.2; O2SAT 100
--- NOTE | 2024-10-15 06:42 | DVHPN2 ---
Progress Note - Dictate Date Seen: Oct 15, 2024 Medical Necessity Reason Pt with a Central, PICC or Fol: No Subjective no new symptoms vital signs Vital Sign Date Time Temp Pulse Resp B/P (MAP) Pulse Ox O2 Delivery O2 Flow Rate FiO2 10/15/24 05:00 98.2 54 17 142/74 (96) 100 98.2 17 0/ 10/14/24 20:00 Room Air* 0 21 Total Intake and Output 10/14/24 10/14/24 10/15/24 15:00 23:00 07:00 Intake Total 120 ml 240 ml 300 ml Output Total 150 ml 100 ml Balance -30 ml 140 ml 300 ml medications Current Medications Medications Dose Ordered Sig/Abe Route Start Time Stop Time Status Last Admin Dose Admin Acetaminophen 650 mg Q6HP PRN PO 10/13/24 22:30 Enoxaparin Sodium 40 mg DAILY SC 10/14/24 10:00 Cancel Heparin Sodium (Porcine) 5,000 units Q12HR SC 10/15/24 10:00 Levothyroxine Sodium 25 mcg QAM@0600 PO 10/15/24 06:00 objective Gen: NAD HEENT: NC,AT. decreased vision Lungs: CTA b/l Cardiac: RRR, no murmur Abd: soft, no tenderness Ext: no edema laboratory and microbiology Laboratory Tests 10/13/24 18:54 Test 10/13/24 18:54 Range/Units Serum Glucose 128 H 74-106 mg/dL Assessment/Plan Assessment: ESRD on HD Hyperkalemia Sinus bradycardia Recurrent falls Metabolic acidosis Hyperphosphatemia Anemia of CKD Secondary hyperparathyroidism Plan: s/p HD Wednesday. Next HD on Wednesday TTS schedule for dialysis no need for CORTEZ at this time obtain 2D Echo Cardiology consult Plan discussed with: Patient BRYCE TOMLIN MD Oct 15, 2024 06:42
[2024-10-15] MEDS: LEVOTHYROXINE SODIUM 25 MCG TAB PO SCH (06:43)
[2024-10-15 07:46] LABS: Chloride 102 mmol/L (98-107); Potassium 4.4 mmol/L (3.5-5.1); Sodium 142 mmol/L (136-145)
[2024-10-15 07:47] LABS: Anion Gap 7 (5-15); Calcium 8.8 mg/dL (8.7-10.4)
[2024-10-15 07:48] LABS: Basophils # (auto) 0 10 ^3/uL (0-0.2); Basophils % (auto) 0.4 % (0.0-2.0); Carbon Dioxide 33 mmol/L (20-31); Eosinophils # (auto) 0 10 ^3/uL (0-0.8); Eosinophils % (auto) 0.6 % (0.0-7.0); Hematocrit 35.1 % (41.0-53.0); Lymphocytes # (auto) 1.1 10 ^3/uL (0.4-5.4); Lymphocytes % (auto) 22.1 % (10.0-50.0); Mean Corpuscular Hemoglobin 34.6 pg (28.0-32.0); Mean Corpuscular Hgb Conc. 34.2 g/dL (32.0-36.0); Mean Corpuscular Volume 101.3 fL (80.0-100.0); Monocytes # (auto) 0.7 10 ^3/uL (0-1.3); Monocytes % (auto) 14.1 % (0.0-12.0); Neutrophils % (auto) 62.8 % (37.0-80.0); Nucleated Red Blood Cells % 0.1 %; Platelet Count (auto) 186 10^3/uL (140-450); Red Blood Cells 3.46 10^6/uL (4.5-5.90); Red Cell Distribution Width 14.4 % (11.8-14.3); White Blood Cell 4.8 10^3/uL (4.4-10.8)
[2024-10-15 07:52] LABS: BUN/Creatinine Ratio 5.7 (10.0-20.0)
[2024-10-15 08:00] VITALS: PULSE 51; PULSE 59; RESP 18; O2SAT 98
[2024-10-15 08:00] LABS: Blood Urea Nitrogen 32 mg/dL (9-23); Glucose 72 mg/dL (74-106)
[2024-10-15 09:00] VITALS: BP 138/47; PULSE 51; RESP 16; TEMP 98; O2SAT 99
[2024-10-15] MEDS: HEPARIN SODIUM (PORCINE) 5000 UNITS/ML 1ML VIAL SC SCH (10:06)
[2024-10-15 13:00] VITALS: BP 151/51; PULSE 46; RESP 16; TEMP 97.8; O2SAT 99
--- NOTE | 2024-10-15 14:31 | DVHPN2 ---
Consult Progress Note Date Seen: Oct 15, 2024 Subjective Review of Systems: CVS:Normal, RESPIRATORY:Normal, NEURO:Normal Other Systems: Denies any cardiac symptoms including dizziness Objective vital signs Vital Sign Date Time Temp Pulse Resp B/P (MAP) Pulse Ox O2 Delivery O2 Flow Rate FiO2 10/15/24 13:00 97.8 46 16 151/51 (84) 99 97.8 10/15/24 08:00 Room Air* 0 21 Total Intake and Output 10/14/24 10/14/24 10/15/24 15:00 23:00 07:00 Intake Total 120 ml 240 ml 300 ml Output Total 150 ml 100 ml Balance -30 ml 140 ml 300 ml medications Current Medications Medications Dose Ordered Sig/Abe Route Start Time Stop Time Status Last Admin Dose Admin Acetaminophen 650 mg Q6HP PRN PO 10/13/24 22:30 Enoxaparin Sodium 40 mg DAILY SC 10/14/24 10:00 Cancel Heparin Sodium (Porcine) 5,000 units Q12HR SC 10/15/24 10:00 10/15/24 10:06 5,000 UNITS Levothyroxine Sodium 25 mcg QAM@0600 PO 10/15/24 06:00 10/15/24 06:43 25 MCG Examination: LUNGS:Normal, CVS:Normal, NEURO:Normal laboratory and microbiology Laboratory Tests 10/15/24 06:46 Test 10/15/24 06:46 Range/Units Serum Glucose 72 L 74-106 mg/dL Problem List/Assessment/Plan Problem List/Assessment/Plan Sinus bradycardia Hyperlipidemia ESRD on hemodialysis Hyperkalemia Legally blind Plan/Recommendation (Dr. Lucia) Patient seen and examined at bedside with . The patient who presented with complaints of generalized weakness and dizziness underwent a transthoracic echocardiogram revealing an EF of 65%. A 12 lead electrocardiogram revealed a sinus bradycardia rhythm with PACs without evidence of pauses or atrioventricular blocks. He underwent orthostatic vital signs which are negative. We recommend avoidance of AV juan blocking agents and an outpatient event monitor if deemed to be necessary to rule out bradyarrhythmias. There is no further cardiac workup indicated at this time. Kindly call if in need to re- consult. Thank you for allowing us to care for this patient. This medical document was created using an electronic medical record system with voice recognition software and computerized dictation system. Although this document has been carefully reviewed, there might still be some phonetic and typographical errors. Occasional wrong-word or ``sound-alike substitutions may have occurred due to the inherent limitations of voice recognition software. These areas are purely typographical due to imperfections of the software programs and do not reflect any compromise in the patient's medical care. Please read the chart carefully and recognize, using context, where these substitutions have occurred. Plan discussed with: Patient, Other Date of Service: Oct 15, 2024 Billing Provider: LEIGH ANN LUCIA MD Cardiology Common Codes: [id number] [facility] CAREDEREK Peoples [facility] Oct 15, 2024 14:31
--- NOTE | 2024-10-15 14:42 | DVHDSRES ---
Discharge Summary Date of Admission Resident Creating Document: MARGY CINTRON RESIDENT Oct 13, 2024 at 22:25 Date of Discharge: Oct 15, 2024 Admitting Diagnosis Generalized weakness Labs/Diagnostic Data: Laboratory Results Test 10/15/24 06:46 10/14/24 07:48 10/13/24 22:05 10/13/24 20:05 White Blood Count 4.8 10^3/uL (4.4-10.8) Red Blood Count 3.46 10^6/uL (4.5-5.90) Hemoglobin 12.0 g/dL (13.5-17.5) Hematocrit 35.1 % (41.0-53.0) Mean Corpuscular Volume 101.3 fL (80.0-100.0) Mean Corpuscular Hemoglobin 34.6 pg (28.0-32.0) Mean Corpuscular Hemoglobin Concent 34.2 g/dL (32.0-36.0) Red Cell Distribution Width 14.4 % (11.8-14.3) Platelet Count 186 10^3/uL (140-450) Mean Platelet Volume 8.5 fL (6.9-10.8) Neutrophils (%) (Auto) 62.8 % (37.0-80.0) Lymphocytes (%) (Auto) 22.1 % (10.0-50.0) Monocytes (%) (Auto) 14.1 % (0.0-12.0) Eosinophils (%) (Auto) 0.6 % (0.0-7.0) Basophils (%) (Auto) 0.4 % (0.0-2.0) Neutrophils # (Auto) 3.0 10 ^3/uL (1.6-8.6) Lymphocytes # (Auto) 1.1 10 ^3/uL (0.4-5.4) Monocytes # (Auto) 0.7 10 ^3/uL (0-1.3) Eosinophils # (Auto) 0 10 ^3/uL (0-0.8) Basophils # (Auto) 0 10 ^3/uL (0-0.2) Nucleated Red Blood Cells 0.1 % Sodium Level 142 mmol/L (136-145) Potassium Level 4.4 mmol/L (3.5-5.1) Chloride Level 102 mmol/L (98-107) Carbon Dioxide Level 33 mmol/L (20-31) Anion Gap 7 (5-15) Blood Urea Nitrogen 32 mg/dL (9-23) Creatinine 5.57 mg/dL (0.700-1.30) Glomerular Filtration Rate Calc 10 mL/min (>90) BUN/Creatinine Ratio 5.7 (10.0-20.0) Serum Glucose 72 mg/dL (74-106) Calcium Level 8.8 mg/dL (8.7-10.4) Magnesium Level 2.0 mg/dL (1.6-2.6) Free Thyroxine (T4) Calculated 1.12 ng/dL (0.89-1.76) Triglycerides Level 116 mg/dL (< 150) Cholesterol Level 180 mg/dL (< 200) LDL Cholesterol 113 mg/dL (< 100) HDL Cholesterol 50 mg/dL (40-59) Troponin I High Sensitivity 7 ng/L (</=54) Test 10/13/24 18:54 Hemoglobin A1c 4.8 % A1C (<5.7) Total Bilirubin 0.6 mg/dL (0.2-1.0) Aspartate Amino Transferase (AST) 17 U/L (13-40) Alanine Aminotransferase (ALT) 22 U/L (7-40) Alkaline Phosphatase 89 U/L (46-116) Total Protein 6.8 g/dL (5.7-8.2) Albumin 4.0 g/dL (3.2-4.8) Thyroid Stimulating Hormone (TSH) 16.62 uIU/mL (0.55-4.78) Other Laboratory Tests 10/15/24 06:46 Brief Hx & Hospital Course: This 73-year-old male with past medical history of hypertension, partial bilateral blindness, end-stage renal disease on hemodialysis (Wednesday, and Wednesday), last hemodialysis was yesterday. The patient presented to the ED to generalized weakness fatigue. The patient states that symptoms started three days ago characterized by generalized weakness, fatigue recurrent falls without loss of consciousness. The patient denies fever, chills, chest pain, palpitations, abdominal pain or any other associated symptoms. Initial EKG showed sinus rhythm with sinus bradycardia with a rate of 50, no ST segment elevation or depression. Initial labs were grossly unremarkable except for hyperkalemia at 5.5, creatinine 6.66 and BUN 37. Initial chest x-ray was grossly unremarkable without evidence of focal consolidation for vascular congestion. We will admit the patient for further assessment and management. Hospital course: Troponin levels were negative. Initial chest x-ray was grossly unremarkable with no evidence of focal consolidation pulmonary vascular congestion. Cardiology was taken on board, echocardiogram showed LVEF 65%, normal diastolic function, normal left ventricular size and wall thickness along with normal left ventricular structure and function. Right ventricular systolic function normal, left atrium mildly dilated. No significant valvular abnormalities. Patient completed hemodialysis in the hospital once. Orthostatic vital signs were negative. Heparin 5000 b.i.d. was used for DVT prophylaxis and hyperkalemia was treated with hyperkalemia protocol. On the day of discharge, patient appeared well and denied any chest pain or difficulty breathing. Cardiology recommended avoidance of AV juan blocking drugs along with potential need for event monitoring in the outpatient clinic. Details of hospitalization and plan of care was explained to the patient, patient was instructed to follow up with PCP in 1 week and follow up in the discharge clinic in 1 week's along with outpatient follow up with Cardiology. His hospital course was uncomplicated. Physical examination on the day of discharge: General Appearance: Cooperative. Well developed. Well nourished. NAD Head Exam: Normal inspection. Partially legally blind bilateral Neck Exam: Normal inspection. Non-tender. Normal alignment Pulmonary/Respiratory: Chest non-tender. Clear bilateral breath sounds, no crackles, no wheezing. Cardiovascular/Chest: Regular rate and rhythm. No murmurs. No JVD. Peripheral Pulses: 2+ Radial (R). 2+ Radial (L). 2+ Pedal (R). 2+ Pedal (L) Abdominal Exam: Normal bowel sounds. Soft. normal abdomen, no visible veins, Nontender. No hepatospenomegaly. No masses Ankle Exam: Negative ankle edema Lower extremities: Negative lower extremity edema Neuro/Mental Status: A&O x2, not oriented to time/year. Coherent. Skin Exam: Normal inspection. Normal color. Warm. Dry Discussed with Dr. Tellez Consults/Reason for consult Nephrology: ESRD on hemodialysis Cardiology: Symptomatic bradycardia Condition at Discharge: Good Final Diagnosis/Problems List Sinus bradycardia Generalized weakness, likely post hemodialysis Possible uremic encephalopathy ESRD on hemodialysis Recurrent falls Hyperkalemia Metabolic acidosis Legally blind Hyperphosphatemia Anemia of chronic disease Possible hypothyroidism Secondary hyperparathyroidism Discharge Disposition: Home Discharge Instruct/Medications Diet: Renal Activity: No Restrictions, As Tolerated Follow Up/Referral: Please follow up with PCP in 1 week Please follow up in discharge clinic Please follow up with Cardiology in the outpatient clinic for possible event monitor Medications: Continue home medications Avoid AV juan blocking medications Discharge Statement: "Patient was advised to return to the ER or call 911 if any headaches, dizziness, shortness of breath, chest pain, abdominal pain, bleeding, fevers, or worsening of medical condition. Patient was counseled about treatment plan, medications, possible side effects, patientverbalized understanding. All questions were answered to the best of my ability. This discharge took greater then 30 minutes in planning, reviewing documentation, counseling the patient, and discussing with other team members." ASSESSMENT ASSESSMENT Assessment Sinus bradycardia ESRD on hemodialysis Hyperkalemia Legally blind Generalized weakness and fatigue, likely post dialysis Possible hypothyroidism Addendum Addendum Addendum I was physically present for the tsang portions of the service provided to patient by THE RESIDENT. I have reviewed the documentation, discussed the case with resident and agree with the resident's documentation except as noted. Also the patient's clinical case was discussed with the patient's nurse. This medical document was created using an electronic medical record system with computerized dictation system. Although this document has been carefully reviewed, there might still be some phonetic and typographical errors. These areas are purely typographical due to imperfections of the software programs, and do not reflect any compromise in the patient's medical care. Late signature. Date of Service: Oct 15, 2024 Billing Provider: SOLOMON TELLEZ MD Common Visit Codes: 31137-QIF/OBS DISCH DAY >30min MARGY CINTRON Oct 15, 2024 14:42 SOLOMON TELLEZ MD Oct 15, 2024 19:08
[2024-10-15 15:10] VITALS: BP 140/80; PULSE 64; RESP 16; TEMP 97.8; O2SAT 99
[2024-10-16 09:18] LABS: Hepatitis B Surface Antigen Negative (Negative)
[2024-10-16 09:45] LABS: Hepatitis A Ab IgM Negative; Hepatitis B Core IgM Negative (Negative); Hepatitis C Antibody Negative (Negative)
--- NOTE | 2024-10-17 07:27 | ECG ---
[facility] Test Date: 2024-10-13 Test Time: 19:29:03 Pat Name: VIRIDIANA SLATER Department: ed Room: 0290T A Gender: M Registered Nurse Nursery: karen : 1950 Requested By: DEMETRI MONDRAGON Order Number: [id number] Reading MD: Yonathan Cotton Measurements Intervals [place] Rate: 50 P: 31 SD: 155 QRS: -60 QRSD: 89 T: 16 QT: 477 QTc: 435 Interpretive Statements Sinus rhythm Atrial premature complex Left anterior fascicular block Borderline low voltage, extremity leads Anteroseptal infarct, old Electronically Signed On 10-17-2024 18:14:26 PST by Yonathan Cotton Please click the below link to view image of tracing.
== END 2024-10-15 16:00 | disposition home or self-care (01) | DRG 640 ==
LOC: EDBD 16:06 → ER 16:06 → TELE 22:25 → TELE-WESTW 23:57
PROVIDERS: ADMIT Student in an Organized Health Care Education/Training Program; ATTEND Internal Medicine
PROC: 5A1D70Z Performance of Urinary Filtration, Intermittent, Less than 6 Hours Per Day (ICD-10-PCS; principal; 2024-10-14)
DX: E87.5 Hyperkalemia (principal); N18.6 End stage renal disease; N25.81 Secondary hyperparathyroidism of renal origin; I12.0 Hypertensive chronic kidney disease with stage 5 chronic kidney disease or end stage renal disease; E87.20 Acidosis, unspecified; D63.1 Anemia in chronic kidney disease; E83.39 Other disorders of phosphorus metabolism; I48.91 Unspecified atrial fibrillation; R29.6 Repeated falls; H54.8 Legal blindness, as defined in USA; E78.5 Hyperlipidemia, unspecified; E03.9 Hypothyroidism, unspecified; Z99.2 Dependence on renal dialysis; Z79.899 Other long term (current) drug therapy
CPT/HCPCS: 36415; 71046; 80048; 80053; 80061; 80074; 83036; 83735; 84439; 84443; 84481; 84484; 85025; 90935; 93005; 93306; 94640; G0378; J1815

== ENCOUNTER 2025-08-11 11:17 | Inpatient (IN) | payer OTHER ==
[~2025-08-11] VITALS: Ht 172.7 cm; Wt 58.0 kg
--- NOTE | 2025-08-11 11:59 | ED.PDOC ---
Altered Mental Status HPI Comments 74 y.o male with PMHx of DM, AFIB and is legally blind, presents to the ED via EMS for an evaluation of syncopal episode. EMS reports patient had dialysis today, towards the end of his session he began feeling faint and lost consciousness for about 1-1.5 minutes. Patient presents to the ED asymptomatic, reports he is unable to recall syncope episode however does recall being dialyzed and is alert and oriented x4. 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, Medications, Allergies Allergies: Coded Allergies: NO KNOWN ALLERGIES (Unverified , 04/04/22) Home Meds Active Scripts Cephalexin (KEFLEX 500) 500 Mg Cap, 1 CAP PO Q8HR for 7 Days, #21 CAP Prov:ECHO URBINA MD 04/06/22 Information Source: Patient, Emergency Med Personnel Mode of Arrival: EMS Severity: Moderate Timing: Hours Duration: Since onset Quality: Decreased Alertness Recent: None History of: Diabetes Associated Signs and Symptoms: None Past Medical History PAST MEDICAL HISTORY: AFIB, DM, ESRD Surgical History: Denies all surgeries Family History Family History: Reviewed,noncontributory to illness Social History Smoker: Non-Smoker Alcohol: Denies ETOH Use Drugs: Denies Drug Use Lives In: Home Constitutional: denies: chills, diaphoresis, fatigue, fever, malaise, sweats, weakness, others EENTM: denies: blurred vision, double vision, ear bleeding, ear discharge, ear drainage, ear pain, ear ringing, eye pain, eye redness, hearing loss, mouth pain, mouth swelling, nasal discharge, nose bleeding, nose congestion, nose pain, photophobia, tearing, throat pain, throat swelling, voice changes, others Respiratory: denies: cough, hemoptysis, orthopnea, SOB at rest, shortness of breath, SOB with excertion, stridor, wheezing, others Cardiovascular: reports: syncope; denies: chest pain, dizzy spells, diaphoresis, Dyspnea on exertion, edema, irregular heart beat, left arm pain, lightheadedness, palpitations, PND, others Gastrointestinal: denies: abdomen distended, abdominal pain, blood streaked bowels, constipated, diarrhea, dysphagia, difficulty swallowing, hematemesis, melena, nausea, poor appetite, poor fluid intake, rectal bleeding, rectal pain, vomiting, others Genitourinary: denies: burning, dysuria, flank pain, frequency, hematuria, incontinence, penile discharge, penile sore, pain, testicle pain, testicle swelling, urgency, others Neurological: denies: dizziness, fainting, headache, left sided numbness, left sided weakness, numbness, paresthesia, pre-existing deficit, right sided n umbness, right sided weakness, seizure, speech problems, tingling, tremors, weakness, others Musculoskeletal: denies: back pain, gout, joint pain, joint swelling, muscle pain, muscle stiffness, neck pain, others Integumetry: denies: bruises, change in color, change in hair/nails, dryness, laceration, lesions, lumps, rash, wounds, others Allergic/Immunocompromised: denies: Difficulty Healing, Frequent Infections, Hives, Itching, others Hematologic/Lymphatic: denies: anemia, blood clots, easy bleeding, easy bruising, swollen glands, others Endocrine: denies: excessive hunger, excessive sweating, excessive thirst, excessive urination, flushing, intolerance to cold, intolerance to heat, unexplained weight gain, unexplained weight loss, others Psychiatric: denies: anxiety, bipolar disorder, depression, hopeless, panic disorder, schizophrenia, sleepless, suicidal, others All Other Systems: Reviewed and Negative Physical Exam General Appearance: Moderate Distress HEENT: Normal ENT Inspection, Pharynx Normal, TMs Normal Neck: Full Range of Motion, Non-Tender, Normal, Normal Inspection Respiratory: Chest Non-Tender, Lungs Clear, No Accessory Muscle Use, No Respiratory Distress, Normal Breath Sounds Cardiovascular: No Edema, No JVD, No Murmur, No Gallop, Normal Peripheral Pulses, Regular Rate/Rhythm Breast Exam: Deferred Gastrointestinal: No Organomegaly, Non Tender, No Pulsatile Mass, Normal Bowel Sounds, Soft Genitalia: Deferred Pelvic: Deferred Rectal: Deferred Extremities: No calf tenderness, No pedal edema Musculoskeletal : Apperance: Normal Neurologic: Alert Cerebellar Function: NOT DONE Reflexes: NOT DONE Skin: Dry, Normal Color, Warm Peripheral Pulses: 3+ Radial (R), 3+ Radial (L) Lymphatic: No Adenopathy Was a procedure done? Was a procedure done?: No Differential Diagnosis (ALOC) Differential Diagnosis: Dehydration, Heart Failure, Renal Failure X-Ray, Labs, Meds, VS Vital Signs Date Time Temp Pulse Resp B/P (MAP) Pulse Ox O2 Delivery O2 Flow Rate FiO2 08/11/25 12:15 88 20 98 Room Air* 0 21 08/11/25 12:15 88 20 128/77 (94) 98 08/11/25 11:35 108 08/11/25 11:29 97.7 97 16 124/78 96 97.7 Lab Test 08/11/25 11:54 Range/Units White Blood Count 4.7 4.4-10.8 10^3/uL Red Blood Count 3.89 L 4.5-5.90 10^6/uL Hemoglobin 12.9 L 13.5-17.5 g/dL Hematocrit 37.5 L 41.0-53.0 % Mean Corpuscular Volume 96.6 80.0-100.0 fL Mean Corpuscular Hemoglobin 33.1 H 28.0-32.0 pg Mean Corpuscular Hemoglobin Concent 34.2 32.0-36.0 g/dL Red Cell Distribution Width 14.5 H 11.8-14.3 % Platelet Count 217 140-450 10^3/uL Mean Platelet Volume 9.0 6.9-10.8 fL Neutrophils (%) (Auto) 68.4 37.0-80.0 % Lymphocytes (%) (Auto) 20.8 10.0-50.0 % Monocytes (%) (Auto) 9.6 0.0-12.0 % Eosinophils (%) (Auto) 0.7 0.0-7.0 % Basophils (%) (Auto) 0.5 0.0-2.0 % Neutrophils # (Auto) 3.2 1.6-8.6 10 ^3/uL Lymphocytes # (Auto) 1.0 0.4-5.4 10 ^3/uL Monocytes # (Auto) 0.5 0-1.3 10 ^3/uL Eosinophils # (Auto) 0 0-0.8 10 ^3/uL Basophils # (Auto) 0 0-0.2 10 ^3/uL Nucleated Red Blood Cells 0.1 % Sodium Level 139 136-145 mmol/L Potassium Level 4.1 3.5-5.1 mmol/L Chloride Level 95 L 98-107 mmol/L Carbon Dioxide Level 29 20-31 mmol/L Anion Gap 15 5-15 Blood Urea Nitrogen 37 H 9-23 mg/dL Creatinine 6.00 H 0.700-1.30 mg/dL Glomerular Filtration Rate Calc 9 >90 mL/min BUN/Creatinine Ratio 6.2 L 10.0-20.0 Serum Glucose 105 74-106 mg/dL Calcium Level 8.8 8.7-10.4 mg/dL Troponin I High Sensitivity 7 </=54 ng/L Thyroid Stimulating Hormone (TSH) 10.53 H 0.55-4.78 uIU/mL [facility] [id number] [place] [address] Ph: [phone] DIAGNOSTIC IMAGING Diagnostic Imaging Report : [id number] Signed PATIENT: VIRIDIANA SLATER ACCT: [id number] UNIT: [id number] : 1950 LOC: ER ROOM / BED: / AGE / SEX: 74 / M ADM STATUS: REG ER SERVICE 1146 ORDERING PHYSICIAN: PING BIANCHI MD PROCEDURE(s): CXRP - CHEST PORTABLE REASON: sob ORDER NUMBER(s): [id number], ACCESSION NUMBER(s): [id number] EXAM DESCRIPTION: Chest 1 View CLINICAL HISTORY: sob COMPARISON: XY CHEST TWO VIEWS ROUTINE on DOS: 10/13/24, XY CHEST PORTABLE on DOS: 02/06/23, CHEST PORTABLE on DOS: 04/04/22, CXRP on DOS: 04/04/22 FINDINGS and IMPRESSION: Lines, tubes, and support devices: None. Lungs / Pleura: No consolidation. No pleural effusion. No pneumothorax. Mediastinum: Normal cardiomediastinal silhouette. Osseous structures / Soft tissues: No acute findings. ATED BY: FRED LOPEZ MD DICTATED DATE/TIME: 08/11/25 1220 SIGNED BY: FRED LOPEZ MD SIGNED DATE/TIME: 08/11/250 CC: Patient alert. Was at dialysis. Possible syncope. Vitals stable. Chest x-ray reviewed does not show any acute process. Explained to the family that she will be admitted. Time of 1ST Reevaluation: 11:53 Reevaluation 1ST: Unchanged Patient Education/Counseling: Diagnosis, Treatment, Prognosis Family Education/Counseling: No Family Present SEPSIS Sepsis Screen Date sepsis recognized/suspect: Aug 11, 2025 Time Sepsis recognized/suspect: 1114 Recent Procedure: No On Antibiotic Therapy: No Respiratory Rate >20: No Heart Rate >90: No Temp<36 C (96.8 F) or >38.3 C: No SBP <90 or MAP <65 mmHG: No New Acute Mental Status Change: No Is the patient on CPAP, BIPAP,: No Physician Orders Chest Portable (08/11/25 11:46) Vital Signs Date Time Temp Pulse Resp B/P (MAP) Pulse Ox O2 Delivery O2 Flow Rate FiO2 08/11/25 12:15 88 20 98 Room Air* 0 21 08/11/25 12:15 88 20 128/77 (94) 98 08/11/25 11:35 108 08/11/25 11:29 97.7 97 16 124/78 96 97.7 Laboratory Tests Test 08/11/25 11:54 White Blood Count 4.7 10^3/uL (4.4-10.8) Departure 1 Departure Time of Disposition: 17:53 Impression: Primary Impression: Syncope Qualified Codes: R55 - Syncope and collapse Additional Impression: CKD (chronic kidney disease) requiring chronic dialysis Disposition: ADMITTED INPATIENT Admit to: Med Surg Condition: Guarded Critical Care Note Critical Care Time?: No Stability Stability form required: No I personally scribed for PING BIANCHI MD ([email or web address]) on 08/11/25 at 11:59. Electronically submitted by Ally Gutierrez ([facility]). I personally scribed for PING BIANCHI MD ([email or web address]) on 08/11/25 at 14:59. Electronically submitted by Sukhi Laird ([email or web address]). PING BIANCHI MD Aug 11, 2025 11:59
--- NOTE | 2025-08-11 11:59 | ECG ---
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
[2025-08-11 12:12] LABS: Hematocrit 37.5 % (41.0-53.0); Hemoglobin 12.9 g/dL (13.5-17.5); Mean Corpuscular Hemoglobin 33.1 pg (28.0-32.0); Mean Corpuscular Volume 96.6 fL (80.0-100.0); Nucleated Red Blood Cells % 0.1 %
[2025-08-11 12:15] VITALS: PULSE 88; RESP 20; O2SAT 98
[2025-08-11 12:17] LABS: Potassium 4.1 mmol/L (3.5-5.1); Sodium 139 mmol/L (136-145)
[2025-08-11 12:18] LABS: Anion Gap 15 (5-15); Calcium 8.8 mg/dL (8.7-10.4); Carbon Dioxide 29 mmol/L (20-31)
[2025-08-11 12:23] LABS: BUN/Creatinine Ratio 6.2 (10.0-20.0); Glucose 105 mg/dL (74-106)
--- NOTE | 2025-08-11 12:23 | DVH ---
EXAM DESCRIPTION: Chest 1 View CLINICAL HISTORY: sob COMPARISON: XY CHEST TWO VIEWS ROUTINE on DOS: 10/13/24, XY CHEST PORTABLE on DOS: 02/06/23, CHEST QUINTIN BLE on DOS: 04/04/22, CXRP on DOS: 04/04/22 FINDINGS and IMPRESSION: Lines, tubes, and support devices: None. Lungs / Pleura: No consolidation. No pleural effusion. No pneumothorax. Mediastinum: Normal cardiomediastinal silhouette. Osseous structures / Soft tissues: No acute findings.
[2025-08-11 12:24] LABS: Blood Urea Nitrogen 37 mg/dL (9-23); Chloride 95 mmol/L (98-107)
[2025-08-11] MEDS ORDERED: MORPHINE SULFATE INJ 2 MG/ml SYRG IV PRN (13:45)
[2025-08-11] MEDS ORDERED: NITROGLYCERIN 0.4 MG SL TAB SL PRN (13:45)
[2025-08-11] MEDS ORDERED: HYDROcodone-ACET 5/325MG TAB PO PRN (13:45)
[2025-08-11] MEDS ORDERED: ONDANSETRON HCL 4 MG/2 ML VIAL IV PRN (13:45)
[2025-08-11] MEDS ORDERED: ACETAMINOPHEN 325 MG TAB PO PRN (13:45)
--- NOTE | 2025-08-11 13:49 | DVHHPRES ---
History of Present Illness Resident Creating Document: YANIRA CUI RESIDENT History of Present Illness 73-year-old male with past medical history of hypertension, partial bilateral blindness, end-stage renal disease on hemodialysis (Wednesday, and Wednesday), last hemodialysis was today. The patient presented to the ED due to syncope. Patient went to dialysis and had syncope and transferred to the ER from the dialysis center. During the encounter patient is confused and not answering questions. The patient experienced a syncopal episode lasting approximately one and a half minutes. He currently reports feeling good and denies passing out during dialysis. The patient appears somewhat confused and is not providing a complete history, with his providing additional historical information. Review of Systems Review of Systems Constitutional: Yes: Weakness, Other (Generalized weakness, fatigue.); No: Fever, Chills, Sweats, Malaise Eyes: Other (Has bilateral partial blindness); No: Pain, Vision change, Conjunctivae inflammation, Eyelid inflammation, Redness ENT: No: Ear pain, Ear discharge, Nose pain, Nose discharge, Nose congestion, Mouth pain, Mouth swelling, Throat pain, Throat swelling, Other Respiratory: No: Cough, Dry, Shortness of breath, SOB with excertion, Wheezing, Hemoptysis, Pleuritic Pain, Sputum, Wheezing, Other Cardiovascular: No: Chest Pain, Palpitations, Orthopnea, Paroxysmal Noc. Dyspnea, Edema, Lt Headedness, Other Gastrointestinal: No: Nausea, Vomiting, Abdominal Pain, Diarrhea, Constipation, Melena, Hematochezia, Other Genitourinary: No Dysuria, No Frequency, No Incontinence, No Hematuria, No Retention, No Other Musculoskeletal: No: other, neck pain, shoulder pain, arm pain, back pain, hand pain, leg pain, foot pain Skin: No: Rash, Lesions, Jaundice, Bruising, Other Neurological: Weakness; seems confused. Allergies: Coded Allergies: NO KNOWN ALLERGIES (Unverified , 04/04/22) Medications Current Medications Medications Dose Ordered Sig/Abe Route Start Time Stop Time Status Last Admin Dose Admin Sodium Chloride 10 ml Q8HR IV 08/11/25 14:00 UNV Acetaminophen/ Hydrocodone Bitart 1 tab Q4HP PRN PO 08/11/25 13:45 UNV Ondansetron HCl 4 mg Q4HP PRN IV 08/11/25 13:45 UNV Enoxaparin Sodium 40 mg DAILY SC 08/12/25 10:00 UNV Acetaminophen 650 mg Q6HP PRN PO 08/11/25 13:45 UNV Nitroglycerin 0.4 mg Q5MINP PRN SL 08/11/25 13:45 UNV Morphine Sulfate 2 mg Q30M PRN IV 08/11/25 13:45 UNV Enoxaparin Sodium 70 mg DAILY SC 08/12/25 10:00 UNV Amiodarone HCl 200 mg DAILY PO 08/12/25 10:00 UNV Exam Vital Signs Vital Signs Date Time Temp Pulse Resp B/P (MAP) Pulse Ox O2 Delivery O2 Flow Rate FiO2 08/11/25 12:15 88 20 98 Room Air* 0 21 08/11/25 12:15 128/77 (94) 08/11/25 11:29 97.7 97.7 Exam General Appearance: Cooperative, No acute distress HEENT: Atraumatic, PERRLA, EOMI, Mucous membr. moist/pink Respiratory: Clear to auscultation, Normal air movement Cardiovascular: Regular rate, Normal S1, Normal S2, No murmurs Abdominal: Normal bowel sounds, Soft, No tenderness, No hepatospenomegaly Extremities: No clubbing, No cyanosis, No edema, Normal pulses, No tenderness/swelling Skin: No rashes, No breakdown, No significant lesion Neuro: Alert, Oriented X2, Psych/Mental Status: Mental status NL, Mood NL Labs/Xrays Labs Test 08/11/25 11:54 Range/Units White Blood Count 4.7 4.4-10.8 10^3/uL Red Blood Count 3.89 L 4.5-5.90 10^6/uL Hemoglobin 12.9 L 13.5-17.5 g/dL Hematocrit 37.5 L 41.0-53.0 % Mean Corpuscular Volume 96.6 80.0-100.0 fL Mean Corpuscular Hemoglobin 33.1 H 28.0-32.0 pg Mean Corpuscular Hemoglobin Concent 34.2 32.0-36.0 g/dL Red Cell Distribution Width 14.5 H 11.8-14.3 % Platelet Count 217 140-450 10^3/uL Mean Platelet Volume 9.0 6.9-10.8 fL Neutrophils (%) (Auto) 68.4 37.0-80.0 % Lymphocytes (%) (Auto) 20.8 10.0-50.0 % Monocytes (%) (Auto) 9.6 0.0-12.0 % Eosinophils (%) (Auto) 0.7 0.0-7.0 % Basophils (%) (Auto) 0.5 0.0-2.0 % Neutrophils # (Auto) 3.2 1.6-8.6 10 ^3/uL Lymphocytes # (Auto) 1.0 0.4-5.4 10 ^3/uL Monocytes # (Auto) 0.5 0-1.3 10 ^3/uL Eosinophils # (Auto) 0 0-0.8 10 ^3/uL Basophils # (Auto) 0 0-0.2 10 ^3/uL Nucleated Red Blood Cells 0.1 % Sodium Level 139 136-145 mmol/L Potassium Level 4.1 3.5-5.1 mmol/L Chloride Level 95 L 98-107 mmol/L Carbon Dioxide Level 29 20-31 mmol/L Anion Gap 15 5-15 Blood Urea Nitrogen 37 H 9-23 mg/dL Creatinine 6.00 H 0.700-1.30 mg/dL Glomerular Filtration Rate Calc 9 >90 mL/min BUN/Creatinine Ratio 6.2 L 10.0-20.0 Serum Glucose 105 74-106 mg/dL Calcium Level 8.8 8.7-10.4 mg/dL Troponin I High Sensitivity 7 </=54 ng/L SEPSIS Sepsis Screen Date sepsis recognized/suspect: Aug 11, 2025 Time Sepsis recognized/suspect: 1214 Recent Procedure: No On Antibiotic Therapy: No Respiratory Rate >20: No Heart Rate >90: No Temp<36 C (96.8 F) or >38.3 C: No SBP <90 or MAP <65 mmHG: No New Acute Mental Status Change: No Is the patient on CPAP, BIPAP,: No Physician Orders Chest Portable (08/11/25 11:46) Admit (08/11/25 13:37) Code Status (08/11/25 13:37) Full Liq Diet (08/11/25 Dinner) Sodium Chloride Lock (Saline Lock Ns) (08/11/25 14:00) Hydrocodone-Acet 5/325mg Tab ([place] 32 (08/11/25 13:45) Ondansetron Hcl (Zofran) (08/11/25 13:45) Enoxaparin Sodium (Lovenox) (08/12/25 10:00) Complete Blood Count (08/12/25 04:00) Comprehensive Metabolic Panel (08/12/25 04:00) Acetaminophen Tablet (Tylenol Tablet) (08/11/25 13:45) Nitroglycerin Sublingual (Ntrostat Subli (08/11/25 13:45) Morphine Sulfate Injection (08/11/25 13:45) Oxygen By Nasal Cannula (08/11/25 13:37) Stat Ekg For Chest Pain (08/11/25 13:37) Notify Md Of Changes From Base (08/11/25 13:37) Condenser Tube Tender For 24 Hours (08/11/25 13:37) Emergency Dysrhythmia Protocol (08/11/25 13:37) Rhythm Strips Once Every Shift (08/11/25 13:37) Lactic Acid W/ Reflex Order (08/12/25 04:00) Thyroid Stimulating Hormone (08/11/25 13:37) Echo 2d Mode Cardiac Dop (08/11/25 13:37) Drug Screen (08/11/25 13:37) Enoxaparin Sodium (Lovenox) (08/12/25 10:00) Amiodarone Tablet (Cordarone Tablet) (08/12/25 10:00) *[facility] (08/11/25 13:46) Vital Signs Date Time Temp Pulse Resp B/P (MAP) Pulse Ox O2 Delivery O2 Flow Rate FiO2 08/11/25 12:15 88 20 98 Room Air* 0 21 08/11/25 12:15 88 20 128/77 (94) 98 08/11/25 11:35 108 08/11/25 11:29 97.7 97 16 124/78 96 97.7 Laboratory Tests Test 08/11/25 11:54 White Blood Count 4.7 10^3/uL (4.4-10.8) Assessment/Plan Assessment/Plan # Syncope, rule out cardiogenic cause -ordered echocardiogram - patient is confused - monitor labs # ESRD on HD (wednesday,,wednesday) -last creatinine was 6.00, BUN 37 -consulted nephrology for hemodialysis # Hypothyroidism - TSH 10.53 - ordered free T4 - Levothyroxine 25 mcg q.a.m. Goal of care discussed with patient for 36 minutes: Full code Plan discussed with Dr. Majano. Plan discussed with: Patient, Spouse My Orders Orders - YANIRA CUI RESIDENT Procedure Category Date Status Time Admit ADMIT 08/11/25 Transmitted 13:37 Code Status CODE 08/11/25 Transmitted 13:37 Full Liq Diet DIET 08/11/25 Transmitted Dinner Sodium Chloride Lock PHA 08/11/25 Logged (Saline Lock Ns) 14:00 Hydrocodone-Acet PHA 08/11/25 Logged 5/325mg Tab ([place] 13:45 Ondansetron Hcl PHA 08/11/25 Logged (Zofran) 13:45 Enoxaparin Sodium PHA 08/12/25 Logged (Lovenox) 10:00 Complete Blood Count LAB 08/12/25 Verified 04:00 Comprehensive LAB 08/12/25 Verified Metabolic Panel 04:00 Acetaminophen Tablet PHA 08/11/25 Logged (Tylenol Tablet) 13:45 Nitroglycerin PHA 08/11/25 Logged Sublingual (Ntrostat 13:45 Morphine Sulfate PHA 08/11/25 Logged Injection 13:45 Oxygen By Nasal RT 08/11/25 Transmitted Cannula 13:37 Stat Ekg For Chest [facility] 08/11/25 In Process Pain 13:37 Notify Of Changes [facility] 08/11/25 In Process From Base 13:37 Condenser Tube Tender For [facility] 08/11/25 In Process 24 Hours 13:37 Emergency Dysrhythmia [facility] 08/11/25 In Process Protocol 13:37 Rhythm Strips Once [facility] 08/11/25 In Process Every Shift 13:37 Lactic Acid W/ Reflex LAB 08/12/25 Verified Order 04:00 Thyroid Stimulating LAB 08/11/25 In Process Hormone 13:37 Echo 2d Mode Cardiac US 08/11/25 Logged DOP 13:37 Drug Screen LAB 08/11/25 Logged 13:37 Enoxaparin Sodium PHA 08/12/25 Logged (Lovenox) 10:00 Amiodarone Tablet PHA 08/12/25 Logged (Cordarone Tablet) 10:00 *Dr. [facility] CONS 08/11/25 Transmitted -[place] 13:46 Date of Service: Aug 11, 2025 Billing Provider: DEYA MAJANO MD Common Visit Codes: 17691-WDBRZDM INP/OBS CARE (HIGH) Secondary Visit Codes: 92295-PFCPDJTM CARE PLAN 30 MINUTES YANIRA CUI RESIDENT Aug 11, 2025 13:49
[2025-08-11 14:00] VITALS: PULSE 86; RESP 18; O2SAT 98
[2025-08-11] MEDS: SODIUM CHLOR 0.9% PF (SALINE LOCK) 10ML VIAL/SYR IV SCH (14:06)
[2025-08-11 14:40] VITALS: BP 132/63; PULSE 86; RESP 16; TEMP 98; O2SAT 100
[2025-08-11 20:00] VITALS: PULSE 63; PULSE 68; RESP 18; O2SAT 95
[2025-08-11 21:00] VITALS: BP 114/83; PULSE 62; RESP 16; TEMP 99; O2SAT 95
[2025-08-11] MEDS: HEPARIN SODIUM (PORCINE) 5000 UNITS/ML 1ML VIAL SC SCH (21:09)
[2025-08-12] VITALS (8 sets, daily range): BP systolic 124–152; BP diastolic 48–74; PULSE 50–67; RESP 15–18; TEMP 96.9–98.7; O2SAT 94–100
[2025-08-12] MEDS: LEVOTHYROXINE SODIUM 25 MCG TAB PO SCH (05:35)
[2025-08-12 07:09] LABS: Hematocrit 34.4 % (41.0-53.0); Hemoglobin 11.7 g/dL (13.5-17.5); Mean Corpuscular Hemoglobin 33.2 pg (28.0-32.0); Mean Corpuscular Volume 97.5 fL (80.0-100.0); Nucleated Red Blood Cells % 0.1 %
[2025-08-12 07:29] LABS: Alanine Aminotransferase 10 U/L (7-40); Albumin 3.9 g/dL (3.2-4.8); Alkaline Phosphatase 86 U/L (46-116); Anion Gap 13 (5-15); BUN/Creatinine Ratio 5.1 (10.0-20.0); Carbon Dioxide 27 mmol/L (20-31); Glucose 75 mg/dL (74-106); Sodium 136 mmol/L (136-145); Total Protein 7.3 g/dL (5.7-8.2)
[2025-08-12 07:30] LABS: Bilirubin, Total 0.7 mg/dL (0.2-1.0); Blood Urea Nitrogen 42 mg/dL (9-23); Calcium 7.8 mg/dL (8.7-10.4); Chloride 96 mmol/L (98-107); Potassium 5.1 mmol/L (3.5-5.1)
[2025-08-12] MEDS: AMIODARONE HCL 200 MG TAB PO SCH (08:55)
[2025-08-12] MEDS ORDERED: ENOXAPARIN SOD 60 MG/0.6 ML SYRINGE SC SCH (10:00)
[2025-08-12] MEDS ORDERED: ENOXAPARIN SOD 40 MG/0.4 ML SYRINGE SC SCH (10:00)
--- NOTE | 2025-08-12 10:13 | DVHPN2 ---
Subjective 74-year-old male with a history of end-stage renal disease and hypertension and hypothyroidism came from dialysis clinic for a syncopal episode Changes from previous H/P or p: Changes Objective Vitals Vital Signs Date Time Temp Pulse Resp B/P (MAP) Pulse Ox O2 Delivery O2 Flow Rate FiO2 08/12/25 08:32 97.8 58 16 125/63 (83) 100 97.8 08/11/25 20:00 Room Air* 0 21 Intake/Output Intake and Output 08/12/25 07:00 Intake Total 940 ml Balance 940 ml Intake Oral 940 ml # Voids 3 # Bowel Movements 1 General Appearance: Alert, Oriented X3, Cooperative, No acute distress Lungs: Clear to auscultation, Normal air movement Cardiovascular: Regular rate, Normal S1, Normal S2 Abdomen: Normal bowel sounds, Soft, No tenderness Extremities: No edema Medications Current Medications Medications Dose Ordered Sig/Abe Route Start Time Stop Time Status Last Admin Dose Admin Sodium Chloride 10 ml Q8HR IV 08/11/25 14:00 08/12/25 05:35 10 ML Acetaminophen/ Hydrocodone Bitart 1 tab Q4HP PRN PO 08/11/25 13:45 Ondansetron HCl 4 mg Q4HP PRN IV 08/11/25 13:45 Enoxaparin Sodium 40 mg DAILY SC 08/12/25 10:00 UNV Acetaminophen 650 mg Q6HP PRN PO 08/11/25 13:45 Nitroglycerin 0.4 mg Q5MINP PRN SL 08/11/25 13:45 Morphine Sulfate 2 mg Q30M PRN IV 08/11/25 13:45 Amiodarone HCl 200 mg DAILY PO 08/12/25 10:00 Heparin Sodium (Porcine) 5,000 units Q12HR SC 08/11/25 22:00 08/12/25 08:54 5,000 UNITS Levothyroxine Sodium 25 mcg QAM@0600 PO 08/12/25 06:00 08/12/25 05:35 25 MCG Laboratory Results Laboratory Tests 08/12/25 06:32 Chemistry Test 08/11/25 11:54 08/12/25 06:32 Calcium Level 8.8 mg/dL (8.7-10.4) 7.8 mg/dL (8.7-10.4) L Albumin 3.9 g/dL (3.2-4.8) Total Protein 7.3 g/dL (5.7-8.2) LFT Test 08/12/25 06:32 Alanine Aminotransferase (ALT) 10 U/L (7-40) Alkaline Phosphatase 86 U/L (46-116) Aspartate Amino Transferase (AST) 13 U/L (13-40) Total Bilirubin 0.7 mg/dL (0.2-1.0) HgA1c, TSH Test 08/11/25 11:54 Hemoglobin A1c 4.9 % A1C (<5.7) Thyroid Stimulating Hormone (TSH) 10.53 uIU/mL (0.55-4.78) H Assessment/Plan Assessment/Plan Syncope End-stage renal disease on hemodialysis Hypertension Hypothyroidism Hyperkalemia Plan We will obtain the home medications Nephrology consult for hemodialysis Cardiology consult Echocardiogram Plan discussed with: Patient Date of Service: Aug 12, 2025 Billing Provider: ECHO URBINA MD Common Visit Codes: NOT BILLABLE ECHO URBINA MD Aug 12, 2025 10:13
--- NOTE | 2025-08-12 12:43 | DVHINCON2 ---
DATE OF CONSULTATION: 08/12/2025 CONSULTING PHYSICIAN: Dr. Otero. REASON FOR CONSULTATION: Management of dialysis. HISTORY OF PRESENT ILLNESS: The patient is a 74-year-old gentleman who is one of our dialysis patients who was getting treatment in the clinic yesterday. In the first hour of the treatment, his blood pressure dropped and he apparently had a syncopal episode. The ambulance was called and he was transferred to this hospital. He is now alert and oriented. Feels much better. Does not recall what happened in the dialysis clinic. Per report of the dialysis nurse, the patient had missed frequent dialysis treatments over the last month and he became fluid overloaded. Currently, he is in the hospital. He feels better. Denies having any symptoms. Denies any chest pain. No shortness of breath. PAST MEDICAL HISTORY: Significant for end-stage renal disease. The patient is legally blind. The patient has a history of hypertension, diabetes, anemia, hyperparathyroidism, hyperlipidemia and atrial fibrillation. MEDICATIONS: Medications list in the hospital include amiodarone, levothyroxine, sodium chloride, nitroglycerin, acetaminophen and Zofran. PHYSICAL EXAMINATION: VITAL SIGNS: Blood pressure 125/63, heart rate is 60 per minute, respirations 18, temperature 97.8. GENERAL: The patient is in no acute distress, alert and oriented x3. HEENT: Exam is unremarkable except that he is legally blind. NECK: There is no jugular venous distention, palpable thyroid or lymphadenopathy. LUNGS: Show diminished air entry at the bases. No crackles, wheezing or rhonchi. CARDIOVASCULAR: Exam shows irregular rate with 1/6 systolic murmur. No pericardial rub. No gallops. ABDOMEN: Soft, nontender. No organomegaly. No ascites. Bowel sounds are normal intensity and frequency. EXTREMITIES: Show no clubbing or cyanosis. There is no edema. NEUROLOGIC: Nonfocal. SKIN: Unremarkable. LABORATORY FINDINGS: His sodium is 136, potassium 5.1, BUN 42, creatinine 8. Hemoglobin is 11.7, white blood cell count is 3.9. IMAGING DATA: Chest x-ray was done in the Emergency Room and shows normal cardiomediastinal silhouette. No fluid overload. No pleural effusions. ASSESSMENT AND PLAN: * End-stage renal disease. The patient is stable from the renal standpoint. * Syncope, likely related to ultrafiltration during dialysis causing cerebral hypoperfusion. * Hypertension, which is now controlled. * Atrial fibrillation, seems to be controlled. * Anemia of renal disease. Hemoglobin is at target range. There is no need for dialysis today. The patient can continue his outpatient dialysis scheduled on Wednesday, and Wednesday. If Cardiology clears him for discharge, he could be discharged back home to continue outpatient dialysis. Thank you for the consultation. MD FREDERICK Campuzano/IWONA TID: [id number] RECEIPT: [id number]
--- NOTE | 2025-08-12 13:00 | DVHINCON2 ---
Date Seen: Aug 12, 2025 Referring Physician MD Lakia Reason for Consultation Syncope History of Present Illness This is a British-speaking mostly 74-year-old man who presented to the emergency room via EMS with a chief complaint of syncopal episode at dialysis center. At time of assessment, the patient was found A&O x3, he is a poor historian unable to recall events prior to admission. Per records, the patient lost consciousness for approximately 1-1.5 minutes which prompted medical staff to call 911. At time of assessment, the patient denied any symptoms including chest pain, palpitations, diaphoresis, dizziness, or further syncopal events. Upon arrival to the emergency room the patient underwent a 12 lead electrocardiogram revealing an atrial fibrillation rhythm with rapid ventricular rate at 108 bpm. Denies history of tachyarrhythmias or a AC/DOAC therapy at home. Home medications include amiodarone, states it was prescribed by his PCP for unknown reason. Denies following up in the outpatient setting with the primary emergency care attendant. Significant medical history includes end-stage renal disease on hemodialysis T-Th-Wed, hypertension, thyroid disease, and legally blind. Past Medical History Past medical history reviewed. No other significant than mentioned above. Past Surgical History Hemodialysis access Family History: Patient reports no known family medical history. Family History Family history reviewed. Social History Denies the use of illicit drugs, alcohol, or tobacco use. Allergies: Coded Allergies: NO KNOWN ALLERGIES (Unverified , 04/04/22) Home Meds Active Scripts Cephalexin (KEFLEX 500) 500 Mg Cap, 1 CAP PO Q8HR for 7 Days, #21 CAP Prov:ECHO URBINA MD 04/06/22 Home Meds Home medications reviewed. Current Medications Current Medications Medications (Trade) Dose Ordered Sig/Abe Route PRN Reason Start Time Stop Time Status Last Admin Sodium Chloride (Saline Lock Ns) 10 ml Q8HR IV 08/11/25 14:00 08/12/25 05:35 Acetaminophen/ Hydrocodone Bitart ([place] 5/325MG Tab) 1 tab Q4HP PRN PO MODERATE PAIN (4-6 PAIN SCALE) 08/11/25 13:45 Ondansetron HCl (Zofran) 4 mg Q4HP PRN IV NAUSEA / VOMITING 08/11/25 13:45 Enoxaparin Sodium (Lovenox) 40 mg DAILY SC 08/12/25 10:00 UNV Acetaminophen (Tylenol Tablet) 650 mg Q6HP PRN PO PAIN SCALE 1-3 OR TEMP>100.4 08/11/25 13:45 Nitroglycerin (Ntrostat Sublingual) 0.4 mg Q5MINP PRN SL FOR CHEST PAIN 08/11/25 13:45 Morphine Sulfate 2 mg Q30M PRN IV FOR CHEST PAIN 08/11/25 13:45 Enoxaparin Sodium (Lovenox) 60 mg DAILY SC 08/12/25 10:00 08/11/25 19:03 DC Amiodarone HCl (Cordarone Tablet) 200 mg DAILY PO 08/12/25 10:00 Heparin Sodium (Porcine) 5,000 units Q12HR SC 08/11/25 22:00 08/12/25 08:54 Levothyroxine Sodium (Synthroid Tablet) 25 mcg QAM@0600 PO 08/12/25 06:00 08/12/25 05:35 Review of Systems Constitutional: No symptom reported Ears, Nose, & Throat: No symptom reported Eyes: No symptom reported Neurological: Syncopal event Pulmonary/Respiratory: No symptom reported Cardiovascular: No symptom reported Gastrointestinal: No symptom reported Genitourinary: No symptom reported Musculoskeletal: No symptom reported Skin: No symptom reported Psychiatric: No symptom reported Endocrine: No symptom reported Hemotologic/Lymphatic: No symptom reported Vital Signs Vital Signs Date Time Temp Pulse Resp B/P (MAP) Pulse Ox O2 Delivery O2 Flow Rate FiO2 08/12/25 08:32 97.8 58 16 125/63 (83) 100 97.8 08/11/25 20:00 Room Air* 0 21 Physical Exam General Appearance: Cooperative. Well developed. Well nourished. In no acute distress Head Exam: Normal inspection Neck Exam: Normal inspection. Non-tender. Normal alignment Pulmonary/Respiratory: Chest non-tender. Clear bilateral breath sounds Cardiovascular/Chest: Regular rate and rhythm. S1, S2. Sinus bradycardia. No murmurs. No JVD. Peripheral Pulses: 2+ Radial (R). 2+ Radial (L). 2+ Pedal (R). 2+ Pedal (L) Abdominal Exam: Normal bowel sounds. Soft. Ankle Exam: Negative ankle edema Lower extremities: Negative lower extremity edema Neuro/Mental Status: A&O x4. Coherent Thoughts/Psych: Normal thought pattern. Appropriate mood and affect. Good judgement and insight Appearance: In no acute distress Skin Exam: Normal inspection. Normal color. Warm. Dry Labs/Diagnostic Data Labs Test 08/12/25 06:32 08/12/25 06:30 08/11/25 11:54 Range/Units White Blood Count 3.9 L 4.4-10.8 10^3/uL Red Blood Count 3.52 L 4.5-5.90 10^6/uL Hemoglobin 11.7 L 13.5-17.5 g/dL Hematocrit 34.4 L 41.0-53.0 % Mean Corpuscular Volume 97.5 80.0-100.0 fL Mean Corpuscular Hemoglobin 33.2 H 28.0-32.0 pg Mean Corpuscular Hemoglobin Concent 34.1 32.0-36.0 g/dL Red Cell Distribution Width 14.4 H 11.8-14.3 % Platelet Count 168 140-450 10^3/uL Mean Platelet Volume 8.9 6.9-10.8 fL Neutrophils (%) (Auto) 56.8 37.0-80.0 % Lymphocytes (%) (Auto) 29.6 10.0-50.0 % Monocytes (%) (Auto) 12.1 H 0.0-12.0 % Eosinophils (%) (Auto) 0.9 0.0-7.0 % Basophils (%) (Auto) 0.6 0.0-2.0 % Neutrophils # (Auto) 2.2 1.6-8.6 10 ^3/uL Lymphocytes # (Auto) 1.1 0.4-5.4 10 ^3/uL Monocytes # (Auto) 0.5 0-1.3 10 ^3/uL Eosinophils # (Auto) 0 0-0.8 10 ^3/uL Basophils # (Auto) 0 0-0.2 10 ^3/uL Nucleated Red Blood Cells 0.1 % Sodium Level 136 136-145 mmol/L Potassium Level 5.1 3.5-5.1 mmol/L Chloride Level 96 L 98-107 mmol/L Carbon Dioxide Level 27 20-31 mmol/L Anion Gap 13 5-15 Blood Urea Nitrogen 42 H 9-23 mg/dL Creatinine 8.17 #H 0.700-1.30 mg/dL Glomerular Filtration Rate Calc 6 >90 mL/min BUN/Creatinine Ratio 5.1 L 10.0-20.0 Serum Glucose 75 74-106 mg/dL Calcium Level 7.8 L 8.7-10.4 mg/dL Total Bilirubin 0.7 0.2-1.0 mg/dL Aspartate Amino Transferase (AST) 13 13-40 U/L Alanine Aminotransferase (ALT) 10 7-40 U/L Alkaline Phosphatase 86 46-116 U/L Total Protein 7.3 5.7-8.2 g/dL Albumin 3.9 3.2-4.8 g/dL Lactic Acid Level 1.5 0.4-2.0 mmol/L Hemoglobin A1c 4.9 <5.7 % A1C Troponin I High Sensitivity 7 </=54 ng/L Thyroid Stimulating Hormone (TSH) 10.53 H 0.55-4.78 uIU/mL Microbiology Date/Time Source Procedure Growth Status 08/12/25 06:20 Nose MRSA Screen - Final Complete Assessment Syncopal event Paroxysmal atrial fibrillation/atrial flutter, Stage IIIa, newly diagnosed (on amiodarone/off DOAC-AC therapy) Rule out structural heart disease Rule out acute CVA Hypertension Thyroid disease ESRD on HD Plan/Recommendation (Dr. Sims) * Twelve lead electrocardiogram x 1 revealed an atrial fibrillation with rapid ventricular rate at 108 bpm * gambling monitor reviewed with intermittent episodes of AFib/A-flutter with RVR and sinus bradycardia without AV blocks * Serial troponin level is negative Plan: We will continue further cardiac evaluation with a transthoracic echocardiogram to rule out structural heart disease. Obtained an urgent head CT to rule out ischemic CVA given newly diagnosed A-Fib/A-flutter. Obtain a bilateral carotid duplex and orthostatic VS. Initiate therapeutic Lovenox and transition to DOAC therapy when appropriate ([id number] Score 2 points, HAS- BLED Score 1 point). Continue low-dose amiodarone at 100 mg BID. Avoid any other AV juan blocking agents. The patient can benefit from an outpatient event monitor given transient bradycardic events. Monitor ECG changes closely and notify accordingly. Further orders per clinical course. Thank you for allowing us to participate in this patient's care. Please call if you have any questions or concerns. This medical document was created using an electronic medical record system with voice recognition software and computerized dictation system. Although this document has been carefully reviewed, there might still be some phonetic and typographical errors. Occasional wrong-word or ``sound-alike substitutions may have occurred due to the inherent limitations of voice recognition software. These areas are purely typographical due to imperfections of the software programs and do not reflect any compromise in the patient's medical care. Please read the chart carefully and recognize, using context, where these substitutions have occurred. Plan discussed with: Patient, Spouse NYHA Physical activity limitations: NA Date of Service: Aug 12, 2025 Billing Provider: DEREK CHRISTIANSON Cardiology Common Codes: 17186-BSUMEBW INP/OBS CARE (High) DEREK CHRISTIANSON Aug 12, 2025 13:00
--- NOTE | 2025-08-12 13:39 | DVHSR ---
APPROVED REPORT EXAM: Two-dimensional and M-mode echocardiogram with Doppler and color Doppler. Blood Pressure: 125/63 mmHg INDICATION Syncope RISK FACTORS Height: 5'8", Weight: 126 DIMENSIONS LVDd4.8 (3.8-5.7cm)LA (2D)4.1 (1.9-4.0cm)Aortic Root3.3 (2.0-3.7cm) LVDs3.5 (2.5-4.0cm)LA (MM) (1.9-4.0cm)Aortic Cusp Exc1.8 (1.5-2.0cm) EF (%) 55.0 (55-70%)Rt. Atrium3.5 (1.9-4.0cm)Asc. Aorta cm IVSd1.1 (0.7-1.1cm)RV (D)3.7 (1.8-2.4cm) PWd1.3 (0.7-1.1cm) Mitral Valve MitralMitral Stenosis E wave0.49m/sMV Mean GR.mmHg A wave0.70m/sMV Peak GR.mmHg E/A ratio0.72D MVAcm2 DECEL [id number] 1/2 Timems Aortic Valve Aortic ValveAortic Stenosis V10.89m/Juan Daniel Mean GR.3mmHg V21.35m/Juan Daniel Peak GR.7mmHg LVOT Diameter1.9 (1.8-2.4cm)Doppler AVA1.87cm2 Pulmonic Valve V21.01m/s Tricuspid Valve TR Velocity2.32m/s [id number] Conclusion MILD LVH AND MILD LV DIASTOLIC DYSFUNCTION LV EF IS 55% SLIGHTLY DILATED LA,RV AND RA NORMAL VALVES NORMAL RVSP AND IS 30 MM OF HG NO EFFUSION
--- NOTE | 2025-08-12 13:43 | DVH ---
Carotid Duplex Date: 08/12/2025 12:56 PM Clinical History: Syncope Comparison: None Technique: Duplex Doppler evaluation of the extracranial carotid and vertebral arteries including col or Doppler and spectral/pulsed waveform analysis was performed. Findings: RIGHT SIDE: The peak systolic velocities are 58 cm/s in the distal CCA and 107 cm/s in the proximal ICA.The ICA/C CA ratio is less than 2. The external carotid artery is patent with peak systolic velocity of 70 cm/s proximally. There is appropriate antegrade flow in the right vertebral artery. LEFT SIDE: The peak systolic velocities are 66 cm/s in the distal CCA and 139 cm/s in the proximal ICA.. The ICA /CCA ratio is 2.1. Mild atherosclerotic calcification of the ICA. The external carotid artery is patent with peak systolic velocity of 83 cm/s proximally. There is appropriate antegrade flow in the left vertebral artery. IMPRESSION: No hemodynamically significant stenosis noted in the right carotid system. Less than 50% stenosis of the left carotid arterial system. Reference: Radiology 2003; 229:[id number]
--- NOTE | 2025-08-12 15:22 | DVH ---
EXAM: CT HEAD WITHOUT CONTRAST INDICATION: Syncope with new onset a-fib rule out CVA TECHNIQUE: CT of the head without intravenous contrast. Coronal and sagittal reformatted images are s ubmitted. Radiation Dose : 1. Head: CT Dose: CTDI volume is 53.5 mGy. Dose-length product is 965.7 mGy*cm The dose indicators for CT are the volume Computed Tomography (CT) Dose Index (CTDIvol) and the Dose Length Product (DLP), and are measured in units of mGy and mGy-cm, respectively. These indicators are not patient dose, but values generated from the CT scanner acquisition factors. The report includes radiation exposure data for exposures received during this examination. All CT scans at this medical facility are performed using dose modulation techniques as appropriate to a performed exam including the following: Automated exposure control was utilized; adjustment of the MA and/or KV according to patient size; and use of iterative reconstruction technique. COMPARISON: None FINDINGS: There is no evidence of acute intracranial hemorrhage, extra-axial collection, mass effect, midline s hift, herniation or hydrocephalus. There are periventricular and subcortical hypodensities, nonspecific, but likely reflecting sequelae of chronic microvascular ischemic changes. The ventricles, sulci and cisterns are age appropriate. The castaneda-white differentiation is intact. The mastoid air cells are patent. There is opacification of the ethmoid air cells, the right sphenoi d sinus and left maxillary sinus. No depressed calvarial fracture. The surrounding soft tissues are unremarkable. IMPRESSION: 1. No evidence of acute intracranial abnormality. 2. Diffuse sinus disease.
--- NOTE | 2025-08-12 22:16 | DVHINCON2 ---
Date Seen: Aug 12, 2025 Referring Physician MD Lakia Reason for Consultation Syncope History of Present Illness This is a [place]ian-speaking mostly 74-year-old male with a past medical history of end-stage renal disease on hemodialysis T-Th-Sat, hypertension, thyroid disease, and legally blind who presented to the emergency room via EMS with a complaint of syncopal episode at dialysis center. At time of assessment, the patient was found A&O x3, he is a poor historian unable to recall events prior to admission. Per records, the patient lost consciousness for approximately 1- 1.5 minutes which prompted medical staff to call 911. At time of assessment, the patient denied any symptoms including chest pain, palpitations, diaphoresis, dizziness, or further syncopal events. Upon arrival to the emergency room the patient underwent a 12 lead electrocardiogram revealing an atrial fibrillation rhythm with rapid ventricular rate at 108 bpm. Denies history of tachyarrhythmias or a AC/DOAC therapy at home. Home medications include amiodarone, states it was prescribed by his PCP for unknown reason. Denies following up in the outpatient setting with the primary claims coordinator. Chest x- ray shows NAD. Patient was admitted to the hospital. I am asked to consult on this patient. Past Medical History Past medical history reviewed. No other significant than mentioned above. Past Surgical History Hemodialysis access Family History: Patient reports no known family medical history. Allergies: Coded Allergies: NO KNOWN ALLERGIES (Unverified , 04/04/22) Home Meds Active Scripts Cephalexin (KEFLEX 500) 500 Mg Cap, 1 CAP PO Q8HR for 7 Days, #21 CAP Prov:ECHO URBINA MD 04/06/22 Current Medications Current Medications Medications (Trade) Dose Ordered Sig/Abe Route PRN Reason Start Time Stop Time Status Last Admin Enoxaparin Sodium (Lovenox) 40 mg DAILY SC 08/12/25 10:00 UNV Enoxaparin Sodium (Lovenox) 60 mg DAILY SC 08/12/25 10:08/11/25 19:03 DC Amiodarone HCl (Cordarone Tablet) 200 mg DAILY PO 08/12/25 10:00 08/12/25 12:59 DC Heparin Sodium (Porcine) 5,000 units Q12HR SC 08/11/25 22:00 08/12/25 12:59 DC 08/12/25 08:54 Levothyroxine Sodium (Synthroid Tablet) 25 mcg QAM@0600 PO 08/12/25 06:00 08/12/25 05:35 Amiodarone HCl (Cordarone Tablet) 100 mg DAILY PO 08/13/25 10:00 Enoxaparin Sodium (Lovenox) 60 mg DAILY SC 08/13/25 10:00 Review of Systems Constitutional: No symptom reported Ears, Nose, & Throat: No symptom reported Eyes: No symptom reported Neurological: Syncopal event Pulmonary/Respiratory: No symptom reported Cardiovascular: No symptom reported Gastrointestinal: No symptom reported Genitourinary: No symptom reported Musculoskeletal: No symptom reported Skin: No symptom reported Psychiatric: No symptom reported Endocrine: No symptom reported Hemotologic/Lymphatic: No symptom reported Vital Signs Vital Signs Date Time Temp Pulse Resp B/P (MAP) Pulse Ox O2 Delivery O2 Flow Rate FiO2 08/12/25 13:00 98.1 50 16 124/48 (73) 98 98.1 08/12/25 08:00 Room Air* 0 21 Physical Exam GENERAL: Alert and oriented x 3. No acute distress. EYES: PERRL, EOMI. Anicteric. HENT: Moist mucous membranes. LUNGS: Clear to auscultation bilaterally. CARDIOVASCULAR: Regular rate and rhythm. ABDOMEN: Soft, nontender and nondistended. EXTREMITIES: No edema. NEUROLOGIC: No focal neurological deficits. SKIN: Warm, dry. Labs/Diagnostic Data Labs Test 08/12/25 06:32 08/12/25 06:30 08/11/25 11:54 Range/Units White Blood Count 3.9 L 4.4-10.8 10^3/uL Red Blood Count 3.52 L 4.5-5.90 10^6/uL Hemoglobin 11.7 L 13.5-17.5 g/dL Hematocrit 34.4 L 41.0-53.0 % Mean Corpuscular Volume 97.5 80.0-100.0 fL Mean Corpuscular Hemoglobin 33.2 H 28.0-32.0 pg Mean Corpuscular Hemoglobin Concent 34.1 32.0-36.0 g/dL Red Cell Distribution Width 14.4 H 11.8-14.3 % Platelet Count 168 140-450 10^3/uL Mean Platelet Volume 8.9 6.9-10.8 fL Neutrophils (%) (Auto) 56.8 37.0-80.0 % Lymphocytes (%) (Auto) 29.6 10.0-50.0 % Monocytes (%) (Auto) 12.1 H 0.0-12.0 % Eosinophils (%) (Auto) 0.9 0.0-7.0 % Basophils (%) (Auto) 0.6 0.0-2.0 % Neutrophils # (Auto) 2.2 1.6-8.6 10 ^3/uL Lymphocytes # (Auto) 1.1 0.4-5.4 10 ^3/uL Monocytes # (Auto) 0.5 0-1.3 10 ^3/uL Eosinophils # (Auto) 0 0-0.8 10 ^3/uL Basophils # (Auto) 0 0-0.2 10 ^3/uL Nucleated Red Blood Cells 0.1 % Sodium Level 136 136-145 mmol/L Potassium Level 5.1 3.5-5.1 mmol/L Chloride Level 96 L 98-107 mmol/L Carbon Dioxide Level 27 20-31 mmol/L Anion Gap 13 5-15 Blood Urea Nitrogen 42 H 9-23 mg/dL Creatinine 8.17 #H 0.700-1.30 mg/dL Glomerular Filtration Rate Calc 6 >90 mL/min BUN/Creatinine Ratio 5.1 L 10.0-20.0 Serum Glucose 75 74-106 mg/dL Calcium Level 7.8 L 8.7-10.4 mg/dL Total Bilirubin 0.7 0.2-1.0 mg/dL Aspartate Amino Transferase (AST) 13 13-40 U/L Alanine Aminotransferase (ALT) 10 7-40 U/L Alkaline Phosphatase 86 46-116 U/L Total Protein 7.3 5.7-8.2 g/dL Albumin 3.9 3.2-4.8 g/dL Lactic Acid Level 1.5 0.4-2.0 mmol/L Hemoglobin A1c 4.9 <5.7 % A1C Troponin I High Sensitivity 7 </=54 ng/L Thyroid Stimulating Hormone (TSH) 10.53 H 0.55-4.78 uIU/mL Microbiology Date/Time Source Procedure Growth Status 08/12/25 06:20 Nose MRSA Screen - Final Complete Assessment Syncopal event. Paroxysmal atrial fibrillation/atrial flutter, Stage IIIa, newly diagnosed (on amiodarone/off DOAC-AC therapy). Rule out structural heart disease. Rule out acute CVA. Hypertension. Thyroid disease. ESRD on HD. Plan/Recommendation I agree with your ongoing assessment and care of plan. Patient has been seen by Oralia Pavon NP on my behalf, her and I discussed the plan with the patient. 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 Obtained an urgent head CT to rule out ischemic CVA given newly diagnosed A-Fib/A-flutter. Obtain a bilateral carotid duplex and orthostatic VS. Initiate therapeutic Lovenox and transition to DOAC therapy when appropriate ([id number] Score 2 points, HAS-BLED Score 1 point). Continue low-dose amiodarone at 100 mg BID. Avoid any other AV juan blocking agents. The patient can benefit from an outpatient event monitor given transient bradycardic events. Monitor ECG changes closely and notify accordingly. Further orders per clinical course. Additional plan as per the hospital course. Plan discussed with: Patient NYHA Physical activity limitations: NA Date of Service: Aug 12, 2025 Billing Provider: REINA GROVES MD Cardiology Common Codes: 26935-NTEBRNO INP/OBS CARE (High) Cardiology Consultation Codes: 45919-[id number] CONSULT <45MIN REINA GROVES MD Aug 12, 2025 15:11
[2025-08-13 00:43] VITALS: BP 125/45; PULSE 48; RESP 18; TEMP 98.8; O2SAT 94
[2025-08-13 05:00] VITALS: BP 128/64; PULSE 52; RESP 16; TEMP 97.8; O2SAT 96
[2025-08-13 06:20] LABS: Amphetamine Screen, Urine Neg (NEGATIVE); Barbiturate Scree,Urine Neg (NEGATIVE); Benzodiazephine Screen, Urine Neg (NEGATIVE); Cannabinoid Screen, Urine Neg (NEGATIVE); Cocaine Screen, Urine Neg (NEGATIVE); Opiate Scree,Urine Neg (NEGATIVE); Phencyclidine Screen, Urine Neg (NEGATIVE)
[2025-08-13 08:00] VITALS: PULSE 63; PULSE 97; RESP 18; O2SAT 94
--- NOTE | 2025-08-13 08:49 | DVHPN2 ---
Progress Note - Dictate Date Seen: Aug 13, 2025 Medical Necessity Reason Pt with a Central, PICC or Fol: No Subjective no acute issues vital signs Vital Sign Date Time Temp Pulse Resp B/P (MAP) Pulse Ox O2 Delivery O2 Flow Rate FiO2 08/13/25 05:00 97.8 52 16 128/64 (85) 96 97.8 08/12/25 20:00 Room Air* 0 21 Total Intake and Output 08/12/25 08/12/25 08/13/25 15:00 23:00 07:00 Intake Total 500 ml 100 ml Output Total 125 ml Balance 500 ml -25 ml medications Current Medications Medications Dose Ordered Sig/Abe Route Start Time Stop Time Status Last Admin Dose Admin Sodium Chloride 10 ml Q8HR IV 08/11/25 14:00 08/13/25 05:18 10 ML Acetaminophen/ Hydrocodone Bitart 1 tab Q4HP PRN PO 08/11/25 13:45 Ondansetron HCl 4 mg Q4HP PRN IV 08/11/25 13:45 Enoxaparin Sodium 40 mg DAILY SC 08/12/25 10:00 UNV Acetaminophen 650 mg Q6HP PRN PO 08/11/25 13:45 Nitroglycerin 0.4 mg Q5MINP PRN SL 08/11/25 13:45 Morphine Sulfate 2 mg Q30M PRN IV 08/11/25 13:45 Levothyroxine Sodium 25 mcg QAM@0600 PO 08/12/25 06:00 08/13/25 05:18 25 MCG Amiodarone HCl 100 mg DAILY PO 08/13/25 10:00 Enoxaparin Sodium 60 mg DAILY SC 08/13/25 10:00 objective GENERAL: The patient is in no acute distress, alert and oriented x3. HEENT: Exam is unremarkable except that he is legally blind. NECK: There is no jugular venous distention, palpable thyroid or lymphadenopathy. LUNGS: Show diminished air entry at the bases. No crackles, wheezing or rhonchi. CARDIOVASCULAR: Exam shows irregular rate with 1/6 systolic murmur. No pericardial rub. No gallops. ABDOMEN: Soft, nontender. No organomegaly. No ascites. Bowel sounds are normal intensity and frequency. EXTREMITIES: Show no clubbing or cyanosis. There is no edema. NEUROLOGIC: Nonfocal. SKIN: Unremarkable. laboratory and microbiology Laboratory Tests 08/12/25 06:32 Test 08/12/25 06:32 Range/Units Serum Glucose 75 74-106 mg/dL Problem List ASSESSMENT AND PLAN: * End-stage renal disease. The patient is stable from the renal standpoint. * Syncope, likely related to ultrafiltration during dialysis causing cerebral hypoperfusion. * Hypertension, which is now controlled. * Atrial fibrillation, seems to be controlled. * Anemia of renal disease. Hemoglobin is at target range. Assessment/Plan Stable for dc from renal standpoint . The patient can continue his outpatient dialysis scheduled on Wednesday, and Wednesday. Plan discussed with: Patient EZ PARISI MD Aug 13, 2025 08:49
[2025-08-13 09:00] VITALS: BP 116/65; PULSE 63; RESP 16; TEMP 97.7; O2SAT 97
[2025-08-13] MEDS ORDERED: SODIUM CHL 0.9% 1000 ML BAG XX ONE (09:45)
[2025-08-13] MEDS: AMIODARONE HCL 200 MG TAB PO SCH (09:51)
[2025-08-13] MEDS: ENOXAPARIN SOD 60 MG/0.6 ML SYRINGE SC SCH (09:51)
[2025-08-13] MEDS ORDERED: NIFE1TAB30 PO (10:20)
[2025-08-13] MEDS ORDERED: AMIO200T33 PO (10:20)
[2025-08-13] MEDS ORDERED: CALC10TA PO (10:20)
[2025-08-13] MEDS ORDERED: LEVO75TA6 PO (10:20)
[2025-08-13] MEDS ORDERED: AMIO100T3 OR (10:53)
[2025-08-13] MEDS ORDERED: APIX2.5T PO (10:56)
--- NOTE | 2025-08-13 11:00 | DVHDS2 ---
Discharge Summary Date of Admission Aug 11, 2025 at 13:37 Date of Discharge: Aug 13, 2025 Labs/Diagnostic Data: Laboratory Results Test 08/13/25 03:30 08/12/25 06:32 08/12/25 06:30 08/11/25 11:54 Urine Opiates Screen Neg (NEGATIVE) Urine Fentanyl Screen Neg (NEGATIVE) Urine Barbiturates Screen Neg (NEGATIVE) Urine Phencyclidine Screen Neg (NEGATIVE) Urine Amphetamines Screen Neg (NEGATIVE) Urine Benzodiazepines Screen Neg (NEGATIVE) Urine Cocaine Screen Neg (NEGATIVE) Urine Cannabinoids Screen Neg (NEGATIVE) White Blood Count 3.9 10^3/uL (4.4-10.8) Red Blood Count 3.52 10^6/uL (4.5-5.90) Hemoglobin 11.7 g/dL (13.5-17.5) Hematocrit 34.4 % (41.0-53.0) Mean Corpuscular Volume 97.5 fL (80.0-100.0) Mean Corpuscular Hemoglobin 33.2 pg (28.0-32.0) Mean Corpuscular Hemoglobin Concent 34.1 g/dL (32.0-36.0) Red Cell Distribution Width 14.4 % (11.8-14.3) Platelet Count 168 10^3/uL (140-450) Mean Platelet Volume 8.9 fL (6.9-10.8) Neutrophils (%) (Auto) 56.8 % (37.0-80.0) Lymphocytes (%) (Auto) 29.6 % (10.0-50.0) Monocytes (%) (Auto) 12.1 % (0.0-12.0) Eosinophils (%) (Auto) 0.9 % (0.0-7.0) Basophils (%) (Auto) 0.6 % (0.0-2.0) Neutrophils # (Auto) 2.2 10 ^3/uL (1.6-8.6) Lymphocytes # (Auto) 1.1 10 ^3/uL (0.4-5.4) Monocytes # (Auto) 0.5 10 ^3/uL (0-1.3) Eosinophils # (Auto) 0 10 ^3/uL (0-0.8) Basophils # (Auto) 0 10 ^3/uL (0-0.2) Nucleated Red Blood Cells 0.1 % Sodium Level 136 mmol/L (136-145) Potassium Level 5.1 mmol/L (3.5-5.1) Chloride Level 96 mmol/L (98-107) Carbon Dioxide Level 27 mmol/L (20-31) Anion Gap 13 (5-15) Blood Urea Nitrogen 42 mg/dL (9-23) Creatinine 8.17 mg/dL (0.700-1.30) Glomerular Filtration Rate Calc 6 mL/min (>90) BUN/Creatinine Ratio 5.1 (10.0-20.0) Serum Glucose 75 mg/dL (74-106) Calcium Level 7.8 mg/dL (8.7-10.4) Total Bilirubin 0.7 mg/dL (0.2-1.0) Aspartate Amino Transferase (AST) 13 U/L (13-40) Alanine Aminotransferase (ALT) 10 U/L (7-40) Alkaline Phosphatase 86 U/L (46-116) Total Protein 7.3 g/dL (5.7-8.2) Albumin 3.9 g/dL (3.2-4.8) Lactic Acid Level 1.5 mmol/L (0.4-2.0) Hemoglobin A1c 4.9 % A1C (<5.7) Troponin I High Sensitivity 7 ng/L (</=54) Thyroid Stimulating Hormone (TSH) 10.53 uIU/mL (0.55-4.78) Other Laboratory Tests 08/12/25 06:32 Brief Hx & Hospital Course: Final diagnoses: Syncope End-stage renal disease on hemodialysis Hypertension Hypothyroidism Hyperkalemia Paroxysmal atrial fibrillation 74-year-old male with a history of end-stage renal disease on hemodialysis and hypertension and hypothyroidism and atrial fibrillation came with a syncopal episode that happened during dialysis He did not finish the dialysis session Here he was running borderline bradycardic He takes amiodarone at home He is not on anticoagulation He was seen by Cardiology He was recommended to continue amiodarone but at a lower dose and add Eliquis He is asymptomatic now CT scan of the head was negative Discharged home Echocardiogram showed EF of 55% with new significant findings except for mild diastolic dysfunction Discharged home on amiodarone 100 mg daily Eliquis 2.5 mg twice a day Continue levothyroxine at home Nifedipine at home Follow up with PCP as soon as possible Potassium today is 5.1 Discussed with Nephrology He can go to dialysis as scheduled tomorrow Condition at Discharge: Stable Final Diagnosis/Problems List Syncope Paroxysmal afib Hypertension Hypothyroidism ESRD on HD Discharge Disposition: Home SNF Discharge Will this Physician continue t: No Discharge Instruct/Medications Scheduled Amiodarone Hcl (Amiodarone Hcl), 200 MG PO DAILY, (Reported) Amiodarone Hcl (Amiodarone Hcl), 100 MG OR DAILY Calcium Acetate (Calcium Acetate), 667 MG PO TIDWM, (Reported) Cephalexin (Keflex 500), 1 CAP PO Q8HR Levothyroxine Sodium (Levothyroxine Sodium), 1 TAB PO DAILY, (Reported) Nifedipine (Nifedipine Er), 60 MG PO DAILY, (Reported) Discharge Statement: "Patient was advised to return to the ER or call 911 if any headaches, dizziness, shortness of breath, chest pain, abdominal pain, bleeding, fevers, or worsening of medical condition. Patient was counseled about treatment plan, medications, possible side effects, patientverbalized understanding. All questions were answered to the best of my ability. This discharge took greater then 30 minutes in planning, reviewing documentation, counseling the patient, and discussing with other team members." ASSESSMENT ASSESSMENT Assessment Date of Service: Aug 13, 2025 Billing Provider: ECHO URBINA MD Common Visit Codes: NOT BILLABLE ECHO URBINA MD Aug 13, 2025 11:00
--- NOTE | 2025-08-13 11:09 | DVHPN2 ---
Consult Progress Note Date Seen: Aug 13, 2025 Subjective Review of Systems: CVS:Normal, RESPIRATORY:Normal, NEURO:Normal Objective vital signs Vital Sign Date Time Temp Pulse Resp B/P (MAP) Pulse Ox O2 Delivery O2 Flow Rate FiO2 08/13/25 09:00 97.7 63 16 116/65 (82) 97 97.7 08/13/25 08:00 Room Air* 0 21 Total Intake and Output 08/12/25 08/12/25 08/13/25 15:00 23:00 07:00 Intake Total 500 ml 100 ml Output Total 125 ml Balance 500 ml -25 ml medications Current Medications Medications Dose Ordered Sig/Abe Route Start Time Stop Time Status Last Admin Dose Admin Sodium Chloride 10 ml Q8HR IV 08/11/25 14:00 08/13/25 05:18 10 ML Acetaminophen/ Hydrocodone Bitart 1 tab Q4HP PRN PO 08/11/25 13:45 Ondansetron HCl 4 mg Q4HP PRN IV 08/11/25 13:45 Enoxaparin Sodium 40 mg DAILY SC 08/12/25 10:00 UNV Acetaminophen 650 mg Q6HP PRN PO 08/11/25 13:45 Nitroglycerin 0.4 mg Q5MINP PRN SL 08/11/25 13:45 Morphine Sulfate 2 mg Q30M PRN IV 08/11/25 13:45 Levothyroxine Sodium 25 mcg QAM@0600 PO 08/12/25 06:00 08/13/25 05:18 25 MCG Amiodarone HCl 100 mg DAILY PO 08/13/25 10:00 08/13/25 09:51 100 MG Apixaban 2.5 mg BID PO 08/13/25 22:00 UNV Examination: GENERAL:Abnormal (Hard of hearing), LUNGS:Normal, CVS:Normal (Sinus bradycardia at 56 bpm with intermittent episodes of A-fib with RVR), NEURO:Normal laboratory and microbiology Laboratory Tests 08/12/25 06:32 Test 08/12/25 06:32 Range/Units Serum Glucose 75 74-106 mg/dL Problem List/Assessment/Plan Problem List/Assessment/Plan Syncopal event Paroxysmal atrial fibrillation/atrial flutter, Stage IIIa, newly diagnosed (on amiodarone/off DOAC-AC therapy) Left ICA stenosis, mild degree Hypertension Thyroid disease, uncontrolled ESRD on HD Plan/Recommendation (Dr. Sims) * Transthoracic echocardiogram revealed LVEF 55% with slightly dilated LA, RV, and RA. Mild LVH and mild LV diastolic dysfunction. Normal valves. RVSP 30 mmHg * Bilateral carotid duplex revealed no hemodynamically significant stenosis noted in the right ICA and less than 50% stenosis of the left carotid arterial system. * Twelve lead electrocardiogram x 1 revealed an atrial fibrillation with rapid ventricular rate at 108 bpm * shelter monitor reviewed with intermittent episodes of AFib/A-flutter with RVR and sinus bradycardia without AV blocks * Serial troponin level is negative Plan: Continue low-dose therapy ([id number] Score 2 points, HAS-BLED Score 1 point) and low-dose amiodarone at 100 mg daily. Avoid any other AV juan blocking agents given transient bradycardia. The patient can benefit from an outpatient event monitor given transient bradycardic events. Initiate lipid- lowering agent given mild left ICA stenosis. There is no further cardiac work- up indicated at this time. Kindly call in the need of any further recommendations, questions, or concerns. Thank you for allowing us to participate in this patient's care. This medical document was created using an electronic medical record system with voice recognition software and computerized dictation system. Although this document has been carefully reviewed, there might still be some phonetic and typographical errors. Occasional wrong-word or ``sound-alike substitutions may have occurred due to the inherent limitations of voice recognition software. These areas are purely typographical due to imperfections of the software programs and do not reflect any compromise in the patient's medical care. Please read the chart carefully and recognize, using context, where these substitutions have occurred. Plan discussed with: Patient, Other Date of Service: Aug 13, 2025 Billing Provider: DEREK CHRISTIANSON Cardiology Common Codes: [id number] [facility](High DEREK CHRISTIANSON Aug 13, 2025 11:09
[2025-08-13 12:08] VITALS: TEMP 36.5
[2025-08-13 12:37] VITALS: BP 121/73; PULSE 96; RESP 16; TEMP 97.5; O2SAT 96
[2025-08-13] MEDS ORDERED: APIXABAN 2.5 MG TAB PO SCH (22:00)
[2025-08-13] MEDS ORDERED: ATORVASTATIN 20 MG TAB PO SCH (22:00)
--- NOTE | 2025-08-14 02:14 | DVHPN2 ---
Consult Progress Note Date Seen: Aug 13, 2025 Subjective Other Systems: Patient was seen and evaluated in follow up. Transthoracic echocardiogram revealed LVEF 55% with slightly dilated LA, RV, and RA. Mild LVH and mild LV diastolic dysfunction. Normal valves. RVSP 30 mmHg. Bilateral carotid duplex revealed no hemodynamically significant stenosis noted in the right ICA and less than 50% stenosis of the left carotid arterial system. Patient is cardiac stable for discharge. Telemetry reviewed. Objective vital signs Vital Sign Date Time Temp Pulse Resp B/P (MAP) Pulse Ox O2 Delivery O2 Flow Rate FiO2 08/13/25 12:37 97.5 96 16 121/73 (89) 96 97.5 08/13/25 08:00 Room Air* 0 21 Total Intake and Output 08/13/25 08/13/25 08/14/25 14:59 22:59 06:59 Intake Total 240 ml Balance 240 ml medications Current Medications Medications Dose Ordered Sig/Abe Route Start Time Stop Time Status Last Admin Dose Admin Enoxaparin Sodium 40 mg DAILY SC 08/12/25 10:00 UNV Examination: GENERAL:Abnormal (Hard of hearing), HEENT:Normal, NECK:Normal, LUNGS:Normal, CVS:Abnormal (Sinus bradycardia at 56 bpm with intermittent episodes of A-fib with RVR), SKIN:Normal, NEURO:Normal laboratory and microbiology Laboratory Tests 08/12/25 06:32 Test 08/12/25 06:32 Range/Units Serum Glucose 75 74-106 mg/dL Problem List/Assessment/Plan Problem List/Assessment/Plan Problem List Syncopal event Paroxysmal atrial fibrillation/atrial flutter, Stage IIIa, newly diagnosed (on amiodarone/off DOAC-AC therapy) Left ICA stenosis, mild degree Hypertension Thyroid disease, uncontrolled ESRD on HD Plan/Recommendation Continued all current supportive medical care. Patient has been seen by Oralia Pavon NP on my behalf. We have discussed the plan with the patient. Transthoracic echocardiogram revealed LVEF 55% with slightly dilated LA, RV, and RA. Mild LVH and mild LV diastolic dysfunction. Normal valves. RVSP 30 mmHg. Bilateral carotid duplex revealed no hemodynamically significant stenosis noted in the right ICA and less than 50% stenosis of the left carotid arterial system. Twelve lead electrocardiogram x 1 revealed an atrial fibrillation with rapid ventricular rate at 108 bpm. curing room supervisor reviewed with intermittent episodes of AFib/A-flutter with RVR and sinus bradycardia without AV blocks. Serial troponin level is negative. Continue low-dose therapy ([id number] Score 2 points, HAS-BLED Score 1 point) and low-dose amiodarone at 100 mg daily. Avoid any other AV juan blocking agents given transient bradycardia. The patient can benefit from an outpatient event monitor given transient bradycardic events. Initiate lipid-lowering agent given mild left ICA stenosis. There is no further cardiac work-up indicated at this time. Additional plan as per the hospital course. Plan discussed with: Patient Date of Service: Aug 13, 2025 Billing Provider: REINA GROVES MD Cardiology Common Codes[id number] REINA GROVES MD Aug 14, 2025 02:14
== END 2025-08-13 13:52 | disposition home or self-care (01) | DRG 308 ==
LOC: EDBD 11:17 → ER 11:17 → OVERFLOW 13:37 → TELE-WESTW 14:36
PROVIDERS: ADMIT Internal Medicine Geriatric Medicine; ATTEND Internal Medicine Geriatric Medicine
DX: I48.0 Paroxysmal atrial fibrillation (principal); N18.6 End stage renal disease; I12.0 Hypertensive chronic kidney disease with stage 5 chronic kidney disease or end stage renal disease; D63.1 Anemia in chronic kidney disease; Z99.2 Dependence on renal dialysis; I65.22 Occlusion and stenosis of left carotid artery; E03.9 Hypothyroidism, unspecified; E11.22 Type 2 diabetes mellitus with diabetic chronic kidney disease; I48.92 Unspecified atrial flutter; E87.5 Hyperkalemia; E78.5 Hyperlipidemia, unspecified; H54.8 Legal blindness, as defined in USA; Z79.01 Long term (current) use of anticoagulants; Z79.899 Other long term (current) drug therapy
CPT/HCPCS: 36415; 70450; 71045; 80048; 80053; 80307; 83036; 83605; 84439; 84443; 84484; 85025; 87081; 87340; 93005; 93306; 93886; G0378